=== PATIENT | female | born 1940 | race Caucasian/White ===

== ENCOUNTER 2016-08-19 11:32 | Emergency (ER) | payer MEDICARE, OTHER ==
[~2016-08-19 11:32] MED LIST: ASPI81TAEC PO; ATOR1TAB19 PO; BIMA01SOL OU; CALC1TAB30 PO; CLOB0.0548 EXT; CO Q1CAP PO; FIBECHW4 PO; FISH1000 PO; MAGN64TASA PO; META48.54 PO; METO25TAB PO; NITR4TASL SL; PERC5TAB6 PO; REST0.05 OU; RISE1TAB8 PO; SYNT25TA PO; VAGI10TA PV; VITMTA PO
[2016-08-19 12:13] LABS: BASO % 0.4 % (0.0-1.0); EOS # 0.2 K/mm3 (0.0-0.50); EOS % 1.9 % (0.0-3.0); LARGE UNSTAINED CELL # 0.2 K/mm3 (0.0-0.4); LARGE UNSTAINED CELL % 2.8 % (0.0-4.0); LYMPH # 2.7 K/mm3 (1.5-4.5); LYMPH % 30.9 % (24.0-44.0); MEAN CORPUSCULAR HEMOGLOBIN 30.6 pg (27.0-33.0); MEAN CORPUSCULAR HGB CONC 32.9 g/dl (32.0-36.5); MEAN CORPUSCULAR VOLUME 93.1 fl (80.0-96.0); MONO # 0.6 K/mm3 (0.0-0.8); NEUTROPHILS # 4.6 K/mm3 (1.8-7.7); PLATELET COUNT, AUTOMATED 175 k/mm3 (150-450); RED CELL DISTRIBUTION WIDTH 13.3 % (11.5-14.5)
[2016-08-19 12:36] LABS: ALBUMIN 3.7 GM/DL (3.2-5.2); ALBUMIN/GLOBULIN RATIO 1.12 (1.00-1.93); ALKALINE PHOSPHATASE 75 U/L (45-117); ALT/SGPT 32 U/L (12-78); ANION GAP 5 MEQ/L (8-16); AST/SGOT 26 U/L (15-37); BILIRUBIN,DIRECT < 0.1 MG/DL (0.0-0.2); BILIRUBIN,TOTAL 0.4 MG/DL (0.2-1.0); BLOOD UREA NITROGEN 14 MG/DL (7-18); CALCIUM LEVEL 9.3 MG/DL (8.8-10.2); CARBON DIOXIDE LEVEL 30 MEQ/L (21-32); CHLORIDE LEVEL 107 MEQ/L (98-107); CREATININE FOR GFR 0.68 MG/DL (0.55-1.02); GLOMERULAR FILTRATION RATE > 60.0 (>39); GLUCOSE, FASTING 94 MG/DL (83-110); POTASSIUM SERUM 4.4 MEQ/L (3.5-5.1); SODIUM LEVEL 142 MEQ/L (136-145)
--- NOTE | 2016-08-19 13:01 | REP ---
PORTABLE CHEST: AP portable view of the chest is performed and compared to prior study of 07/01/2016. There is no evidence of acute infiltrate or pulmonary edema. There is mild cardiomegaly. There is mild calcification of the thoracic aorta. Mediastinal silhouette is unchanged. IMPRESSION: No acute pulmonary disease. Signed by Yaakov Simon MD 08/19/2016 02:20 P
[2016-08-19] MEDS ORDERED: ASPIRIN 81 MG CHEW TABLET As Ordered ONE (13:08)
--- NOTE | 2016-08-19 15:32 | EDDOCDS ---
Nurse's Notes [facility] Name: Luz White Age: 75 yrs Sex: Female : 1940 Arrival Date: 08/19/2016 Time: 11:32 Bed 19 Private MD: Markie Chowdhury R. Diagnosis: Other chest pain;Angina pectoris Presentation: 08/19 11:41 Presenting complaint: Patient states: she has had chest tightness since 729. kcs 11:45 Aspirin was not taken prior to arrival. Adult Sepsis Screening: The patient does not kcs have new or worsening altered mentation. Patient's respiratory rate is less than 22. Systolic blood pressure is greater than 100. Patient has a qSOFA score of 0- Negative Sepsis Screen. Suicide/Homicide risk assessment- the patient denies having any suicidal and/or homicidal ideations and does not present with any other emotional, behavioral or mental health complaints. Status: Patient is not a herbicide service sales representative or dependent. Transition of care: patient was not received from another setting of care. 11:45 Acuity: EZEKIEL Level 3 kcs 11:45 Method Of Arrival: Wheelchair kcs 11:53 Red Flag criteria, patient assessed and taken directly to a bed. kcs Triage Assessment: 11:50 General: Appears comfortable, slender, well developed, well nourished, well groomed, kcs Behavior is cooperative, flat. Pain: Location: mid-sternal chest Pain currently is 5 out of 10 on a pain scale. The patient is triaged at the bedside. See Assessment in Nurses Notes section of ED record. Neurological: Level of Consciousness is awake, alert. Cardiovascular: Rhythm is sinus rhythm No ectopy. Respiratory: Airway is patent Respiratory effort is even, unlabored, Respiratory pattern is regular, symmetrical. Derm: Skin is intact, is healthy with good turgor, Skin is dry, Skin is pink, warm & dry. normal. Historical: - Allergies: No known drug Allergies; - Home Meds: 1. aspirin 81 mg Oral chew 1 tab once daily 2. risedronate 35 mg oral tab 1 tab once wkly 3. levothyroxine 25 mcg Oral tab 1 tab once daily 4. metoprolol tartrate 25 mg Oral tab 1 tab 2 times per day 5. Slow-Mag 71.5 mg Oral TbEC daily 6. CoQ-10 100 mg oral cap daily 7. atorvastatin 10 mg oral tab 1 tab every other night 8. Centrum Silver 0.4-300-250 mg-mcg-mcg oral tab daily 9. Calcium + Vitamin D Oral twice a day 10. vagifem 10 mcg three times a week 11. Metamucil Smooth Texture Oral twice a day 12. Lumigan 0.01 % ophthalmic drop 1 drop in each eye daily 13. clobetasol .05% to perineal area as needed 14. Fish Oil 1,000 mg Oral cap daily 15. nitroglycerin 0.4 mg SL subl 1 tab every 5 minutes as needed 16. Restasis 0.05 % ophthalmic dpet 1 drop 2 times per day - PMHx: Hypercholesterolemia; Hypertension; - PSHx: D & C; Tonsillectomy; fracture right arm; Cataract Surgery- Bilateral; - Social history: Smoking status: Patient states was never smoker of tobacco. No barriers to communication noted, The patient speaks fluent Burundian. - Family history: Not pertinent. - : The pt / caregiver states he / she is not on anticoagulants. Home medication list is obtained from the patient, [employer] import data. - Exposure Risk Screening:: None identified. Screenin:37 Screening information is obtained from the patient. Fall risk: No risks identified. kr3 Assistance ADL's: requires no assistance with activities of daily living. Abuse/DV Screen: The patient / caregiver reports he/she is: not in a situation that causes fear, pain or injury. Nutritional screening: No deficits noted. Advance Directives: Currently, there is a health care proxy, . There is an active Power of Compound Machine Operator, . home support is adequate. Assessment: 12:36 General: Appears in no apparent distress, comfortable, Behavior is cooperative. Pain: kr3 Denies pain. Neurological: Level of Consciousness is awake, alert. Cardiovascular: Rhythm is sinus rhythm No ectopy. Respiratory: Respiratory effort is even, unlabored, Breath sounds are clear bilaterally. Derm: Skin is pink, warm & dry. 13:28 Reassessment: Patient appears in no apparent distress at this time. PAIN FREE after 2 kr3 Nitro. 15:29 General: First contact with pt. Pt resting comfortably in bed. No apparent distress. ld5 Denies pain. Respirations easy and unlabored. Ate lunch and tolerated well. Will continue to monitor. Vital Signs: 11:34 BP 174 / 62; Pulse 63; Resp 18; Temp 97.0(O); Pulse Ox 97% on R/A; Weight 51.71 kg (R); ct3 Height 62 in. (157.48 cm) (R); Pain 6/10; 13:13 BP 114 / 56 (auto/); kr3 13:14 Pulse 58 MON; Pulse Ox 97% ; Pain 3/10; kr3 13:20 BP 115 / 58; Pulse 57; Pain 2/10; kr3 13:28 BP 125 / 57; Pulse 57; Pain 0/10; kr3 13:43 BP 120 / 59 (auto/); kr3 13:43 Pulse 62 MON; Pulse Ox 95% ; kr3 13:58 BP 128 / 60 (auto/); kr3 13:58 Pulse 58 MON; Pulse Ox 95% ; kr3 14:13 BP 115 / 58 (auto/); kr3 14:14 Pulse 56 MON; Pulse Ox 96% ; kr3 14:28 BP 115 / 58 (auto/); kr3 14:28 Pulse 54 MON; Pulse Ox 97% ; kr3 14:43 BP 111 / 55 (auto/); kr3 14:44 Pulse 56 MON; Pulse Ox 97% ; kr3 15:26 BP 130 / 60 (auto/); Pulse 58; Resp 16; Temp 97(O); Pulse Ox 97% on R/A; Pain 0/10; ld5 11:34 Body Mass Index 20.85 (51.71 kg, 157.48 cm) ct3 Vitals: 11:34 Log In Time: August 19, 2016 at 11:31. RN notified that patient meets Red Flag ct3 criteria. ED Course: 11:34 Patient visited by Sylvie Contreras PCA. ct3 11:34 Markie Chowdhury is Private Physician. ct3 11:34 Patient moved to Waiting ct3 11:39 Tiffany Johnson,RN is Primary Nurse. kcs 11:39 Patient moved to 21 kcs 11:41 Patient moved to 19 kcs 11:45 Triage Initiated kcs 11:54 EKG done. (by ED staff). lr2 11:57 D-Dimer Quant Sent. kr3 11:58 Liver Profile Sent. kr3 11:58 Troponin Sent. kr3 11:58 CIP Sent. kr3 11:58 MED Profile Sent. kr3 11:58 CBC with Diff Sent. kr3 11:58 Inserted saline lock: 20 gauge in left antecubital area and blood collected. The kr3 patient tolerated the procedure well. 12:35 Tanisha Foley FNP [facility]. le 12:36 Patient visited by Tiffany Johnson RN. kr3 12:36 Patient visited by Tanisha Foley FNP. le 12:36 Patient visited by Tanisha Foley FNP. le 12:38 The patient / caregiver is instructed regarding the plan of care and ED course. kr3 Accompanied by Family Member, Patient has correct armband on for positive identification. Placed in gown. Bed in low position. Call light in reach. Side rails up X2. personnel monitor on. Pulse ox on. NIBP on. 13:17 Chest, 1 View Returned. EDMS 13:28 Patient visited by Tiffany Johnson RN. kr3 13:30 Diet tray given. kr3 13:36 EKG done. (by ED staff). lr2 14:05 Patient visited by Tiffany Johnson RN. kr3 14:56 Chest, 1 View Returned. EDMS 15:02 Taran Britton MD is Referral Physician. le 15:26 Discontinued lock intact, bleeding controlled, pressure dressing applied, No ld5 redness/swelling at site. No procedures done that require assistance. 15:31 Patient visited by Alem Painter RN. ld5 Administered Medications: 13:10 Drug: Aspirin 324 mg [aspirin 81 mg chewable tablet (4 tabs)] Route: PO; kr3 13:10 Drug: Nitrostat 0.4 mg [Nitrostat 0.4 mg sublingual tablet (1 tabs)] Route: Sublingual; kr3 13:20 Drug: Nitrostat 0.4 mg [Nitrostat 0.4 mg sublingual tablet (1 tabs)] Route: Sublingual; kr3 13:20 Follow up: BP 115 / 58; Pulse 57 bpm; Pain 2/10 Adult kr3 13:28 Follow up: BP 125 / 57; Pulse 57 bpm; Pain 0/10 Adult; Response: Pain is resolved kr3 Order Results: Lab Order: CBC with Diff; SPEC'M 08/19/16 11:56 Test: WHITE BLOOD COUNT; Value: 8.0; Range: 4.0-10.0; Units: K/mm3; Status: F Test: RED BLOOD COUNT; Value: 4.60; Range: 4.00-5.40; Units: M/mm3; Status: F Test: HEMOGLOBIN; Value: 14.1; Range: 12.0-16.0; Units: g/dl; Status: F Test: HEMATOCRIT; Value: 42.8; Range: 36.0-47.0; Units: %; Status: F Test: MEAN CORPUSCULAR VOLUME; Value: 93.1; Range: 80.0-96.0; Units: fl; Status: F Test: MEAN CORPUSCULAR HEMOGLOBIN; Value: 30.6; Range: 27.0-33.0; Units: pg; Status: F Test: MEAN CORPUSCULAR HGB CONC; Value: 32.9; Range: 32.0-36.5; Units: g/dl; Status: F Test: RED CELL DISTRIBUTION WIDTH; Value: 13.3; Range: 11.5-14.5; Units: %; Status: F Test: PLATELET COUNT, AUTOMATED; Value: 175; Range: 150-450; Units: k/mm3; Status: F Test: NEUTROPHILS %; Value: 57.0; Range: 36.0-66.0; Units: %; Status: F Test: LYMPH %; Value: 30.9; Range: 24.0-44.0; Units: %; Status: F Test: MONO %; Value: 7.0; Range: 0.0-5.0; Abnormal: Above high normal; Units: %; Status: F Test: EOS %; Value: 1.9; Range: 0.0-3.0; Units: %; Status: F Test: BASO %; Value: 0.4; Range: 0.0-1.0; Units: %; Status: F Test: LARGE UNSTAINED CELL %; Value: 2.8; Range: 0.0-4.0; Units: %; Status: F Test: NEUTROPHILS #; Value: 4.6; Range: 1.8-7.7; Units: K/mm3; Status: F Test: LYMPH #; Value: 2.7; Range: 1.5-4.5; Units: K/mm3; Status: F Test: MONO #; Value: 0.6; Range: 0.0-0.8; Units: K/mm3; Status: F Test: EOS #; Value: 0.2; Range: 0.0-0.50; Units: K/mm3; Status: F Test: BASO #; Value: 0.0; Range: 0.0-0.2; Units: K/mm3; Status: F Test: LARGE UNSTAINED CELL #; Value: 0.2; Range: 0.0-0.4; Units: K/mm3; Status: F Lab Order: MED Profile; SPEC'M 08/19/16 11:56 Test: GLUCOSE, FASTING; Value: 94; Range: 83-110; Units: MG/DL; Status: F Test: BLOOD UREA NITROGEN; Value: 14; Range: 7-18; Units: MG/DL; Status: F Test: CREATININE FOR GFR; Value: 0.68; Range: 0.55-1.02; Units: MG/DL; Status: F Test: GLOMERULAR FILTRATION RATE; Value: > 60.0; Range: >39; Status: F Test: SODIUM LEVEL; Value: 142; Range: 136-145; Units: MEQ/L; Status: F Test: POTASSIUM SERUM; Value: 4.4; Range: 3.5-5.1; Units: MEQ/L; Status: F Test: CHLORIDE LEVEL; Value: 107; Range: 98-107; Units: MEQ/L; Status: F Test: CARBON DIOXIDE LEVEL; Value: 30; Range: 21-32; Units: MEQ/L; Status: F Test: ANION GAP; Value: 5; Range: 8-16; Abnormal: Below low normal; Units: MEQ/L; Status: F Test: CALCIUM LEVEL; Value: 9.3; Range: 8.8-10.2; Units: MG/DL; Status: F Test Note: ; Units are mL/min/1.73 m2 Chronic Kidney Disease Staging per NKF: Stage I & II GFR >=60 Normal to Mildly Decreased Stage III GFR 30-59 Moderately Decreased Stage IV GFR 15-29 Severely Decreased Stage V GFR <15 Very Little GFR Left ESRD GFR <15 on 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 Lab Order: CIP; SPEC'M 08/19/16 11:56 Test: CPK CREATINE PHOSPHOKINASE; Value: 48; Range: 26-192; Units: U/L; Status: F Test: CK-MB VALUE MASS; Value: 2.1; Range: 0.0-3.6; Units: NG/ML; Status: F Test: MB/CK RELATIVE INDEX; Value: 4.37; Range: < OR =4; Abnormal: Above high normal; Status: F Test Note: ; DIAGNOSIS CRITERIA MMB ng/ml Relative Index (RI) NON-AMI < or = 5 N/A SIMON ZONE > 5 < or = 4 AMI > 5 > 4 Lab Order: Troponin; SPEC'M 08/19/16 11:56 Test: TROPONIN I; Value: < 0.02; Range: < 0.10; Units: NG/ML; Status: F Test Note: ; Troponin I Reference Interval for [employer] LOCI: 99th Percentile= 0.00-0.045 ng/ml Risk Stratification: <= 0.10 ng/ml Decreased Risk for Adverse Clinical Events. 0.10-1.50 ng/ml Increased Risk for Adverse Clinical Events. Evaluation of additional criterion and/or repeat testing in 2-6 hours is suggested to rule out myocardial damage. >= 1.50 ng/ml Indicative of Myocardial Injury. Lab Order: Liver Profile; SPEC'M 08/19/16 11:56 Test: AST/SGOT; Value: 26; Range: 15-37; Units: U/L; Status: F Test: ALT/SGPT; Value: 32; Range: 12-78; Units: U/L; Status: F Test: ALKALINE PHOSPHATASE; Value: 75; Range: 45-117; Units: U/L; Status: F Test: BILIRUBIN,TOTAL; Value: 0.4; Range: 0.2-1.0; Units: MG/DL; Status: F Test: BILIRUBIN,DIRECT; Value: < 0.1; Range: 0.0-0.2; Units: MG/DL; Status: F Test: TOTAL PROTEIN; Value: 7.0; Range: 6.4-8.2; Units: GM/DL; Status: F Test: ALBUMIN; Value: 3.7; Range: 3.2-5.2; Units: GM/DL; Status: F Test: ALBUMIN/GLOBULIN RATIO; Value: 1.12; Range: 1.00-1.93; Status: F Lab Order: D-Dimer Quant; SPEC'M 08/19/16 11:56 Test: D-DIMER QUANT; Value: 290.0; Range: <500; Units: ng/ml; Status: F Lab Order: CARDIAC MARKER PANEL; SPEC'M 08/19/16 13:54 Test: CPK CREATINE PHOSPHOKINASE; Value: 43; Range: 26-192; Units: U/L; Status: F Test: CK-MB VALUE MASS; Value: 1.3; Range: 0.0-3.6; Units: NG/ML; Status: F Test: MB/CK RELATIVE INDEX; Value: 3.02; Range: < OR =4; Status: F Test: TROPONIN I; Value: < 0.02; Range: < 0.10; Units: NG/ML; Status: F Test Note: ; DIAGNOSIS CRITERIA MMB ng/ml Relative Index (RI) NON-AMI < or = 5 N/A SIMON ZONE > 5 < or = 4 AMI > 5 > 4 Radiology Order: Chest, 1 View Test: Chest, 1 View REASON FOR EXAMINATION: Chest Pain; PORTABLE CHEST:; ; AP portable view of the chest is performed and compared to prior study of; 07/01/2016.; ; There is no evidence of acute infiltrate or pulmonary edema. There is mild; cardiomegaly. There is mild calcification of the thoracic aorta. Mediastinal; silhouette is unchanged.; ; IMPRESSION:; ; No acute pulmonary disease.; ; ; Signed by; Yaakov Simon MD 08/19/2016 02:20 P; Outcome: 15:02 Discharge ordered by Provider. le 15:26 Discharge Assessment: Patient awake, alert and oriented x 3. No cognitive and/or ld5 functional deficits noted. Patient verbalized understanding of disposition instructions. patient administered narcotics - no. The following High Risk Discharge criteria are identified: None. Discharged to home ambulatory, with significant other. Condition: stable. Discharge instructions given to patient, significant other, Instructed on discharge instructions, follow up and referral plans. medication usage, Demonstrated understanding of instructions, Pt was receptive of discharge instructions/ teaching. No special radiology studies were completed. Property :Personal belongings accompany Pt. 15:31 Patient left the ED. ld5 Signatures: Dispatcher [employer] EDStormy Martinez, RN RN kcs Tiffany Johnson,RN RN kr3 Tanisha Foley, Alem Villeda,RN RN ld5 Sylvie Contreras, MARIA DE JESUS RUST PROOFER ct3 Alem Calderon lr2 MTDD
--- NOTE | 2016-08-19 15:32 | EDDOCDS ---
Physician Documentation [facility] Name: Luz White Age: 75 yrs Sex: Female : 1940 Arrival Date: 08/19/2016 Time: 11:32 Bed 19 Private MD: Markie Chowdhury R. Disposition: 08/19 15:04 Critical Care: Critical care not applicable. le Disposition: 08/19/16 15:02 Discharged to Home/Self Care. Impression: Other chest pain, Angina pectoris. - Condition is Stable. - Discharge Instructions: Angina Pectoris. - Medication Reconciliation, Local Pharmacy Hours form. - Follow up: Taran Britton MD; When: Call to arrange an appointment; Reason: Recheck today's complaints, Continuance of care. - Problem is an acute exacerbation. - Symptoms are resolved. - Notes: Use your nitroglycerine if chest pain recurs. You can take it every 5 minutes. If you need to take the 3rd dose, call 911 and come to the hospital to be checked Call Dr Grider office to schedule a follow-up appointment Historical: - Allergies: No known drug Allergies; - Home Meds: 1. aspirin 81 mg Oral chew 1 tab once daily 2. risedronate 35 mg oral tab 1 tab once wkly 3. levothyroxine 25 mcg Oral tab 1 tab once daily 4. metoprolol tartrate 25 mg Oral tab 1 tab 2 times per day 5. Slow-Mag 71.5 mg Oral TbEC daily 6. CoQ-10 100 mg oral cap daily 7. atorvastatin 10 mg oral tab 1 tab every other night 8. Centrum Silver 0.4-300-250 mg-mcg-mcg oral tab daily 9. Calcium + Vitamin D Oral twice a day 10. vagifem 10 mcg three times a week 11. Metamucil Smooth Texture Oral twice a day 12. Lumigan 0.01 % ophthalmic drop 1 drop in each eye daily 13. clobetasol .05% to perineal area as needed 14. Fish Oil 1,000 mg Oral cap daily 15. nitroglycerin 0.4 mg SL subl 1 tab every 5 minutes as needed 16. Restasis 0.05 % ophthalmic dpet 1 drop 2 times per day - PMHx: Hypercholesterolemia; Hypertension; - PSHx: D & C; Tonsillectomy; fracture right arm; Cataract Surgery- Bilateral; - Social history: Smoking status: Patient states was never smoker of tobacco. No barriers to communication noted, The patient speaks fluent Malay. - Family history: Not pertinent. - : The pt / caregiver states he / she is not on anticoagulants. Home medication list is obtained from the patient, [employer] import data. - Exposure Risk Screening:: None identified. Vital Signs: 11:34 BP 174 / 62; Pulse 63; Resp 18; Temp 97.0(O); Pulse Ox 97% on R/A; Weight 51.71 kg / ct3 114 lbs (R); Height 62 in. (157.48 cm) (R); Pain 6/10; 13:13 BP 114 / 56 (auto/); kr3 13:14 Pulse 58 MON; Pulse Ox 97% ; Pain 3/10; kr3 13:20 BP 115 / 58; Pulse 57; Pain 2/10; kr3 13:28 BP 125 / 57; Pulse 57; Pain 0/10; kr3 13:43 BP 120 / 59 (auto/); kr3 13:43 Pulse 62 MON; Pulse Ox 95% ; kr3 13:58 BP 128 / 60 (auto/); kr3 13:58 Pulse 58 MON; Pulse Ox 95% ; kr3 14:13 BP 115 / 58 (auto/); kr3 14:14 Pulse 56 MON; Pulse Ox 96% ; kr3 14:28 BP 115 / 58 (auto/); kr3 14:28 Pulse 54 MON; Pulse Ox 97% ; kr3 14:43 BP 111 / 55 (auto/); kr3 14:44 Pulse 56 MON; Pulse Ox 97% ; kr3 15:26 BP 130 / 60 (auto/); Pulse 58; Resp 16; Temp 97(O); Pulse Ox 97% on R/A; Pain 0/10; ld5 11:34 Body Mass Index 20.85 (51.71 kg, 157.48 cm) ct3 MDM: 11:43 ECG WITH READING ER PHYS+CARDIAG ordered. EDMS 11:53 IV Saline Lock ordered. ml 11:53 Metal Solderer/Pulse Ox/q 15 min VS ordered. ml 11:53 Rhythm Strip to chart ordered. ml 11:54 CBC with Diff Ordered. EDMS 11:54 MED Profile Ordered. EDMS 11:54 CIP Ordered. EDMS 11:54 Troponin Ordered. EDMS 11:54 Liver Profile Ordered. EDMS 11:54 D-Dimer Quant Ordered. EDMS 11:55 Chest, 1 View Ordered. EDMS 12:57 CBC with Diff Reviewed. le 12:57 MED Profile Reviewed. le 12:57 CIP Reviewed. le 12:57 Troponin Reviewed. le 12:57 Liver Profile Reviewed. le 12:57 D-Dimer Quant Reviewed. le 12:58 Aspirin Chewable Tablet 324 mg PO once ordered. le 12:58 Nitrostat 0.4 mg Sublingual every 5 minutes; hold if SBP<90mmHg.Document Pain Score le Response to Each Dose x3 ordered. 12:59 2 GRAM SODIUM+DIET ordered. EDMS 13:04 Repeat EKG (put time details section) ordered. le 13:04 Redraw CIP &Troponin (put time in details section) ordered. le 13:08 Redraw CIP &Troponin (put time in details section) complete. rs6 13:08 Repeat EKG (put time details section) complete. rs6 13:12 ECG WITH READING ER PHYS ordered. EDMS 13:13 CARDIAC MARKER PANEL Ordered. EDMS 14:37 CARDIAC MARKER PANEL Reviewed. le 14:37 Chest, 1 View Reviewed. le Administered Medications: 13:10 Drug: Aspirin 324 mg [aspirin 81 mg chewable tablet (4 tabs)] Route: PO; kr3 13:10 Drug: Nitrostat 0.4 mg [Nitrostat 0.4 mg sublingual tablet (1 tabs)] Route: Sublingual; kr3 13:20 Drug: Nitrostat 0.4 mg [Nitrostat 0.4 mg sublingual tablet (1 tabs)] Route: Sublingual; kr3 13:20 Follow up: BP 115 / 58; Pulse 57 bpm; Pain 2/10 Adult kr3 13:28 Follow up: BP 125 / 57; Pulse 57 bpm; Pain 0/10 Adult; Response: Pain is resolved kr3 Signatures: Dispatcher [employer] EDMS Amanda Plascencia MD MD ml Sleeman, Kacey, RN RN Tanisha Verdin, LAYER OUT LAYER OUT Alem MyersRN RN ld5 Grace Pabon, PROBATION AGENT PROBATION AGENT rs6 Tiffany Johnson RN kr3 MTDD
--- NOTE | 2016-08-20 07:56 | ECGEPIP ---
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
--- NOTE | 2016-08-20 08:01 | ECGEPIP ---
Stationary ECG Study 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
--- NOTE | 2016-08-21 16:32 | EDDOCDS ---
Nurse's Notes [facility] Name: Anuja White Age: 75 yrs Sex: Female : 1940 Arrival Date: 08/19/2016 Time: 11:32 Bed 19 Private MD: Markie Chowdhury R. Diagnosis: Other chest pain;Angina pectoris Presentation: 08/19 11:41 Presenting complaint: Patient states: she has had chest tightness since 729. kcs 11:45 Aspirin was not taken prior to arrival. Adult Sepsis Screening: The patient does not kcs have new or worsening altered mentation. Patient's respiratory rate is less than 22. Systolic blood pressure is greater than 100. Patient has a qSOFA score of 0- Negative Sepsis Screen. Suicide/Homicide risk assessment- the patient denies having any suicidal and/or homicidal ideations and does not present with any other emotional, behavioral or mental health complaints. Status: Patient is not a government service executive or dependent. Transition of care: patient was not received from another setting of care. 11:45 Acuity: EZEKIEL Level 3 kcs 11:45 Method Of Arrival: Wheelchair kcs 11:53 Red Flag criteria, patient assessed and taken directly to a bed. kcs Triage Assessment: 11:50 General: Appears comfortable, slender, well developed, well nourished, well groomed, kcs Behavior is cooperative, flat. Pain: Location: mid-sternal chest Pain currently is 5 out of 10 on a pain scale. The patient is triaged at the bedside. See Assessment in Nurses Notes section of ED record. Neurological: Level of Consciousness is awake, alert. Cardiovascular: Rhythm is sinus rhythm No ectopy. Respiratory: Airway is patent Respiratory effort is even, unlabored, Respiratory pattern is regular, symmetrical. Derm: Skin is intact, is healthy with good turgor, Skin is dry, Skin is pink, warm & dry. normal. Historical: - Allergies: No known drug Allergies; - Home Meds: 1. aspirin 81 mg Oral chew 1 tab once daily 2. risedronate 35 mg oral tab 1 tab once wkly 3. levothyroxine 25 mcg Oral tab 1 tab once daily 4. metoprolol tartrate 25 mg Oral tab 1 tab 2 times per day 5. Slow-Mag 71.5 mg Oral TbEC daily 6. CoQ-10 100 mg oral cap daily 7. atorvastatin 10 mg oral tab 1 tab every other night 8. Centrum Silver 0.4-300-250 mg-mcg-mcg oral tab daily 9. Calcium + Vitamin D Oral twice a day 10. vagifem 10 mcg three times a week 11. Metamucil Smooth Texture Oral twice a day 12. Lumigan 0.01 % ophthalmic drop 1 drop in each eye daily 13. clobetasol .05% to perineal area as needed 14. Fish Oil 1,000 mg Oral cap daily 15. nitroglycerin 0.4 mg SL subl 1 tab every 5 minutes as needed 16. Restasis 0.05 % ophthalmic dpet 1 drop 2 times per day - PMHx: Hypercholesterolemia; Hypertension; - PSHx: D & C; Tonsillectomy; fracture right arm; Cataract Surgery- Bilateral; - Social history: Smoking status: Patient states was never smoker of tobacco. No barriers to communication noted, The patient speaks fluent Colombian. - Family history: Not pertinent. - : The pt / caregiver states he / she is not on anticoagulants. Home medication list is obtained from the patient, [employer] import data. - Exposure Risk Screening:: None identified. Screenin:37 Screening information is obtained from the patient. Fall risk: No risks identified. kr3 Assistance ADL's: requires no assistance with activities of daily living. Abuse/DV Screen: The patient / caregiver reports he/she is: not in a situation that causes fear, pain or injury. Nutritional screening: No deficits noted. Advance Directives: Currently, there is a health care proxy, . There is an active Power of Engineering Aid, . home support is adequate. Assessment: 12:36 General: Appears in no apparent distress, comfortable, Behavior is cooperative. Pain: kr3 Denies pain. Neurological: Level of Consciousness is awake, alert. Cardiovascular: Rhythm is sinus rhythm No ectopy. Respiratory: Respiratory effort is even, unlabored, Breath sounds are clear bilaterally. Derm: Skin is pink, warm & dry. 13:28 Reassessment: Patient appears in no apparent distress at this time. PAIN FREE after 2 kr3 Nitro. 15:29 General: First contact with pt. Pt resting comfortably in bed. No apparent distress. ld5 Denies pain. Respirations easy and unlabored. Ate lunch and tolerated well. Will continue to monitor. Vital Signs: 11:34 BP 174 / 62; Pulse 63; Resp 18; Temp 97.0(O); Pulse Ox 97% on R/A; Weight 51.71 kg (R); ct3 Height 62 in. (157.48 cm) (R); Pain 6/10; 13:13 BP 114 / 56 (auto/); kr3 13:14 Pulse 58 MON; Pulse Ox 97% ; Pain 3/10; kr3 13:20 BP 115 / 58; Pulse 57; Pain 2/10; kr3 13:28 BP 125 / 57; Pulse 57; Pain 0/10; kr3 13:43 BP 120 / 59 (auto/); kr3 13:43 Pulse 62 MON; Pulse Ox 95% ; kr3 13:58 BP 128 / 60 (auto/); kr3 13:58 Pulse 58 MON; Pulse Ox 95% ; kr3 14:13 BP 115 / 58 (auto/); kr3 14:14 Pulse 56 MON; Pulse Ox 96% ; kr3 14:28 BP 115 / 58 (auto/); kr3 14:28 Pulse 54 MON; Pulse Ox 97% ; kr3 14:43 BP 111 / 55 (auto/); kr3 14:44 Pulse 56 MON; Pulse Ox 97% ; kr3 15:26 BP 130 / 60 (auto/); Pulse 58; Resp 16; Temp 97(O); Pulse Ox 97% on R/A; Pain 0/10; ld5 11:34 Body Mass Index 20.85 (51.71 kg, 157.48 cm) ct3 Vitals: 11:34 Log In Time: August 19, 2016 at 11:31. RN notified that patient meets Red Flag ct3 criteria. ED Course: 11:34 Patient visited by Sylvie Contreras PCA. ct3 11:34 Markie Chowdhury is Private Physician. ct3 11:34 Patient moved to Waiting ct3 11:39 Tiffany Johnson,RN is Primary Nurse. kcs 11:39 Patient moved to 21 kcs 11:41 Patient moved to 19 kcs 11:45 Triage Initiated kcs 11:54 EKG done. (by ED staff). lr2 11:57 D-Dimer Quant Sent. kr3 11:58 Liver Profile Sent. kr3 11:58 Troponin Sent. kr3 11:58 CIP Sent. kr3 11:58 MED Profile Sent. kr3 11:58 CBC with Diff Sent. kr3 11:58 Inserted saline lock: 20 gauge in left antecubital area and blood collected. The kr3 patient tolerated the procedure well. 12:35 [facility] le 12:36 Patient visited by Tiffany Johnson RN. kr3 12:36 Patient visited by Tanisha Foley FNP. le 12:36 Patient visited by Tanisha Foley FNP. le 12:38 The patient / caregiver is instructed regarding the plan of care and ED course. kr3 Accompanied by Family Member, Patient has correct armband on for positive identification. Placed in gown. Bed in low position. Call light in reach. Side rails up X2. aquatic centre manager on. Pulse ox on. NIBP on. 13:17 Chest, 1 View Returned. EDMS 13:28 Patient visited by Tiffany Johnson RN. kr3 13:30 Diet tray given. kr3 13:36 EKG done. (by ED staff). lr2 14:05 Patient visited by Tiffany Johnson RN. kr3 14:56 Chest, 1 View Returned. EDMS 15:02 Taran Britton MD is Referral Physician. le 15:26 Discontinued lock intact, bleeding controlled, pressure dressing applied, No ld5 redness/swelling at site. No procedures done that require assistance. 15:31 Patient visited by Alem Painter RN. ld5 15:58 [facility] Payment Agreement was scanned into [employer] and attached to record. gjb 08/20 08:04 EKG-ADULT Returned. EDMS 08:04 ECG WITH READING ER PHYS Returned. EDMS 09:44 T-Sheet-- Draft Copy was scanned into [employer] and attached to record. gb 09:47 ECG/EKG was scanned into [employer] and attached to record. gb 09:48 Trend VS was scanned into [employer] and attached to record. gb 12:54 ECG/EKG was scanned into [employer] and attached to record. gb Administered Medications: 08/19 13:10 Drug: Aspirin 324 mg [aspirin 81 mg chewable tablet (4 tabs)] Route: PO; kr3 13:10 Drug: Nitrostat 0.4 mg [Nitrostat 0.4 mg sublingual tablet (1 tabs)] Route: Sublingual; kr3 13:20 Drug: Nitrostat 0.4 mg [Nitrostat 0.4 mg sublingual tablet (1 tabs)] Route: Sublingual; kr3 13:20 Follow up: BP 115 / 58; Pulse 57 bpm; Pain 2/10 Adult kr3 13:28 Follow up: BP 125 / 57; Pulse 57 bpm; Pain 0/10 Adult; Response: Pain is resolved kr3 Attachments: 09:48 Trend VS gb Order Results: Lab Order: CBC with Diff; SPEC'M 08/19/16 11:56 Test: WHITE BLOOD COUNT; Value: 8.0; Range: 4.0-10.0; Units: K/mm3; Status: F Test: RED BLOOD COUNT; Value: 4.60; Range: 4.00-5.40; Units: M/mm3; Status: F Test: HEMOGLOBIN; Value: 14.1; Range: 12.0-16.0; Units: g/dl; Status: F Test: HEMATOCRIT; Value: 42.8; Range: 36.0-47.0; Units: %; Status: F Test: MEAN CORPUSCULAR VOLUME; Value: 93.1; Range: 80.0-96.0; Units: fl; Status: F Test: MEAN CORPUSCULAR HEMOGLOBIN; Value: 30.6; Range: 27.0-33.0; Units: pg; Status: F Test: MEAN CORPUSCULAR HGB CONC; Value: 32.9; Range: 32.0-36.5; Units: g/dl; Status: F Test: RED CELL DISTRIBUTION WIDTH; Value: 13.3; Range: 11.5-14.5; Units: %; Status: F Test: PLATELET COUNT, AUTOMATED; Value: 175; Range: 150-450; Units: k/mm3; Status: F Test: NEUTROPHILS %; Value: 57.0; Range: 36.0-66.0; Units: %; Status: F Test: LYMPH %; Value: 30.9; Range: 24.0-44.0; Units: %; Status: F Test: MONO %; Value: 7.0; Range: 0.0-5.0; Abnormal: Above high normal; Units: %; Status: F Test: EOS %; Value: 1.9; Range: 0.0-3.0; Units: %; Status: F Test: BASO %; Value: 0.4; Range: 0.0-1.0; Units: %; Status: F Test: LARGE UNSTAINED CELL %; Value: 2.8; Range: 0.0-4.0; Units: %; Status: F Test: NEUTROPHILS #; Value: 4.6; Range: 1.8-7.7; Units: K/mm3; Status: F Test: LYMPH #; Value: 2.7; Range: 1.5-4.5; Units: K/mm3; Status: F Test: MONO #; Value: 0.6; Range: 0.0-0.8; Units: K/mm3; Status: F Test: EOS #; Value: 0.2; Range: 0.0-0.50; Units: K/mm3; Status: F Test: BASO #; Value: 0.0; Range: 0.0-0.2; Units: K/mm3; Status: F Test: LARGE UNSTAINED CELL #; Value: 0.2; Range: 0.0-0.4; Units: K/mm3; Status: F Lab Order: MED Profile; SPEC'M 08/19/16 11:56 Test: GLUCOSE, FASTING; Value: 94; Range: 83-110; Units: MG/DL; Status: F Test: BLOOD UREA NITROGEN; Value: 14; Range: 7-18; Units: MG/DL; Status: F Test: CREATININE FOR GFR; Value: 0.68; Range: 0.55-1.02; Units: MG/DL; Status: F Test: GLOMERULAR FILTRATION RATE; Value: > 60.0; Range: >39; Status: F Test: SODIUM LEVEL; Value: 142; Range: 136-145; Units: MEQ/L; Status: F Test: POTASSIUM SERUM; Value: 4.4; Range: 3.5-5.1; Units: MEQ/L; Status: F Test: CHLORIDE LEVEL; Value: 107; Range: 98-107; Units: MEQ/L; Status: F Test: CARBON DIOXIDE LEVEL; Value: 30; Range: 21-32; Units: MEQ/L; Status: F Test: ANION GAP; Value: 5; Range: 8-16; Abnormal: Below low normal; Units: MEQ/L; Status: F Test: CALCIUM LEVEL; Value: 9.3; Range: 8.8-10.2; Units: MG/DL; Status: F Test Note: ; Units are mL/min/1.73 m2 Chronic Kidney Disease Staging per NKF: Stage I & II GFR >=60 Normal to Mildly Decreased Stage III GFR 30-59 Moderately Decreased Stage IV GFR 15-29 Severely Decreased Stage V GFR <15 Very Little GFR Left ESRD GFR <[address] CUTTER Lab Order: CIP; SPEC08/19/16 11:56 Test: CPK CREATINE PHOSPHOKINASE; Value: 48; Range: 26-192; Units: U/L; Status: F Test: CK-MB VALUE MASS; Value: 2.1; Range: 0.0-3.6; Units: NG/ML; Status: F Test: MB/CK RELATIVE INDEX; Value: 4.37; Range: < OR =4; Abnormal: Above high normal; Status: F Test Note: ; DIAGNOSIS CRITERIA MMB ng/ml Relative Index (RI) NON-AMI < or = 5 N/A SIMON ZONE > 5 < or = 4 AMI > 5 > 4 Lab Order: Troponin; 08/19/16 11:56 Test: TROPONIN I; Value: < 0.02; Range: < 0.10; Units: NG/ML; Status: F Test Note: ; Troponin I Reference Interval for [employer] [place] LOCI: 99th Percentile= 0.00-0.045 ng/ml Risk Stratification: <= 0.10 ng/ml Decreased Risk for Adverse Clinical Events. 0.10-1.50 ng/ml Increased Risk for Adverse Clinical Events. Evaluation of additional criterion and/or repeat testing in 2-6 hours is suggested to rule out myocardial damage. >= 1.50 ng/ml Indicative of Myocardial Injury. Lab Order: Liver Profile; SPEC08/19/16 11:56 Test: AST/SGOT; Value: 26; Range: 15-37; Units: U/L; Status: F Test: ALT/SGPT; Value: 32; Range: 12-78; Units: U/L; Status: F Test: ALKALINE PHOSPHATASE; Value: 75; Range: 45-117; Units: U/L; Status: F Test: BILIRUBIN,TOTAL; Value: 0.4; Range: 0.2-1.0; Units: MG/DL; Status: F Test: BILIRUBIN,DIRECT; Value: < 0.1; Range: 0.0-0.2; Units: MG/DL; Status: F Test: TOTAL PROTEIN; Value: 7.0; Range: 6.4-8.2; Units: GM/DL; Status: F Test: ALBUMIN; Value: 3.7; Range: 3.2-5.2; Units: GM/DL; Status: F Test: ALBUMIN/GLOBULIN RATIO; Value: 1.12; Range: 1.00-1.93; Status: F Lab Order: D-Dimer Quant; SPEC'M 08/19/16 11:56 Test: D-DIMER QUANT; Value: 290.0; Range: <500; Units: ng/ml; Status: F Lab Order: CARDIAC MARKER PANEL; SPEC' 08/19/16 13:54 Test: CPK CREATINE PHOSPHOKINASE; Value: 43; Range: 26-192; Units: U/L; Status: F Test: CK-MB VALUE MASS; Value: 1.3; Range: 0.0-3.6; Units: NG/ML; Status: F Test: MB/CK RELATIVE INDEX; Value: 3.02; Range: < OR =4; Status: F Test: TROPONIN I; Value: < 0.02; Range: < 0.10; Units: NG/ML; Status: F Test Note: ; DIAGNOSIS CRITERIA MMB ng/ml Relative Index (RI) NON-AMI < or = 5 N/A SIMON ZONE > 5 < or = 4 AMI > 5 > 4 Radiology Order: EKG-ADULT Test: EKG-ADULT REASON FOR EXAMINATION: Chest Pain; Stationary ECG Study; [facility] - ED; ; Test Date: 2016-08-19; Pat Name: ANUJA WHITE Department:; Room: -; Gender: F 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; : 1940 Requested By: Amanda Plascencia; Order Number: [id number] Reading MD: Carmen Cavazos; Measurements; Intervals [place]; Rate: 64 P: 64; IL: 158 QRS: -6; QRSD: 89 T: 24; QT: 413; QTc: 426; Interpretive Statements; SINUS RHYTHM; NSTTW ABNORMALITY; INCREASED RATE 07/01/16; Electronically Signed On 08-20-2016 7:55:50 EST by Carmen Cavazos; Radiology Order: Chest, 1 View Test: Chest, 1 View REASON FOR EXAMINATION: Chest Pain; PORTABLE CHEST:; ; AP portable view of the chest is performed and compared to prior study of; 07/01/2016.; ; There is no evidence of acute infiltrate or pulmonary edema. There is mild; cardiomegaly. There is mild calcification of the thoracic aorta. 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 le 15:26 Discharge Assessment: Patient awake, alert and oriented x 3. No cognitive and/or ld5 functional deficits noted. Patient verbalized understanding of disposition instructions. patient administered narcotics - no. The following High Risk Discharge criteria are identified: None. Discharged to home ambulatory, with significant other. Condition: stable. Discharge instructions given to patient, significant other, Instructed on discharge instructions, follow up and referral plans. medication usage, Demonstrated understanding of instructions, Pt was receptive of discharge instructions/ teaching. No special radiology studies were completed. Property :Personal belongings accompany Pt. 15:31 Patient left the ED. ld5 Signatures: Dispatcher [employer] Stormy Brown, RN RN Chana Raya, Reg Reg Tiffany Castro RN RN kr3 Tanisha Foley, PRISONER CLASSIFICATION INTERVIEWER Alem Madera RN RN ld5 Sylvie Contreras, KEYING MACHINE OPERATOR KEYING MACHINE OPERATOR ct3 Ángela Hernandez Laura lr2 Chart Complete MTDD
--- NOTE | 2016-08-21 16:32 | EDDOCDS ---
Physician Documentation [facility] Name: Luz White Age: 75 yrs Sex: Female : 1940 Arrival Date: 08/19/2016 Time: 11:32 Bed 19 Private MD: Markie Chowdhury R. Disposition: 08/19 15:04 Critical Care: Critical care not applicable. le Disposition: 08/19/16 15:02 Discharged to Home/Self Care. Impression: Other chest pain, Angina pectoris. - Condition is Stable. - Discharge Instructions: Angina Pectoris. - Medication Reconciliation, Local Pharmacy Hours form. - Follow up: Taran Britton MD; When: Call to arrange an appointment; Reason: Recheck today's complaints, Continuance of care. - Problem is an acute exacerbation. - Symptoms are resolved. - Notes: Use your nitroglycerine if chest pain recurs. You can take it every 5 minutes. If you need to take the 3rd dose, call 911 and come to the hospital to be checked Call Dr Grider office to schedule a follow-up appointment Historical: - Allergies: No known drug Allergies; - Home Meds: 1. aspirin 81 mg Oral chew 1 tab once daily 2. risedronate 35 mg oral tab 1 tab once wkly 3. levothyroxine 25 mcg Oral tab 1 tab once daily 4. metoprolol tartrate 25 mg Oral tab 1 tab 2 times per day 5. Slow-Mag 71.5 mg Oral TbEC daily 6. CoQ-10 100 mg oral cap daily 7. atorvastatin 10 mg oral tab 1 tab every other night 8. Centrum Silver 0.4-300-250 mg-mcg-mcg oral tab daily 9. Calcium + Vitamin D Oral twice a day 10. vagifem 10 mcg three times a week 11. Metamucil Smooth Texture Oral twice a day 12. Lumigan 0.01 % ophthalmic drop 1 drop in each eye daily 13. clobetasol .05% to perineal area as needed 14. Fish Oil 1,000 mg Oral cap daily 15. nitroglycerin 0.4 mg SL subl 1 tab every 5 minutes as needed 16. Restasis 0.05 % ophthalmic dpet 1 drop 2 times per day - PMHx: Hypercholesterolemia; Hypertension; - PSHx: D & C; Tonsillectomy; fracture right arm; Cataract Surgery- Bilateral; - Social history: Smoking status: Patient states was never smoker of tobacco. No barriers to communication noted, The patient speaks fluent Yakut. - Family history: Not pertinent. - : The pt / caregiver states he / she is not on anticoagulants. Home medication list is obtained from the patient, [employer] import data. - Exposure Risk Screening:: None identified. Vital Signs: 11:34 BP 174 / 62; Pulse 63; Resp 18; Temp 97.0(O); Pulse Ox 97% on R/A; Weight 51.71 kg / ct3 114 lbs (R); Height 62 in. (157.48 cm) (R); Pain 6/10; 13:13 BP 114 / 56 (auto/); kr3 13:14 Pulse 58 MON; Pulse Ox 97% ; Pain 3/10; kr3 13:20 BP 115 / 58; Pulse 57; Pain 2/10; kr3 13:28 BP 125 / 57; Pulse 57; Pain 0/10; kr3 13:43 BP 120 / 59 (auto/); kr3 13:43 Pulse 62 MON; Pulse Ox 95% ; kr3 13:58 BP 128 / 60 (auto/); kr3 13:58 Pulse 58 MON; Pulse Ox 95% ; kr3 14:13 BP 115 / 58 (auto/); kr3 14:14 Pulse 56 MON; Pulse Ox 96% ; kr3 14:28 BP 115 / 58 (auto/); kr3 14:28 Pulse 54 MON; Pulse Ox 97% ; kr3 14:43 BP 111 / 55 (auto/); kr3 14:44 Pulse 56 MON; Pulse Ox 97% ; kr3 15:26 BP 130 / 60 (auto/); Pulse 58; Resp 16; Temp 97(O); Pulse Ox 97% on R/A; Pain 0/10; ld5 11:34 Body Mass Index 20.85 (51.71 kg, 157.48 cm) ct3 MDM: 11:43 ECG WITH READING ER PHYS+CARDIAG ordered. EDMS 11:53 IV Saline Lock ordered. ml 11:53 Forgeman Helper/Pulse Ox/q 15 min VS ordered. ml 11:53 Rhythm Strip to chart ordered. ml 11:54 CBC with Diff Ordered. EDMS 11:54 MED Profile Ordered. EDMS 11:54 CIP Ordered. EDMS 11:54 Troponin Ordered. EDMS 11:54 Liver Profile Ordered. EDMS 11:54 D-Dimer Quant Ordered. EDMS 11:55 Chest, 1 View Ordered. EDMS 12:57 CBC with Diff Reviewed. le 12:57 MED Profile Reviewed. le 12:57 CIP Reviewed. le 12:57 Troponin Reviewed. le 12:57 Liver Profile Reviewed. le 12:57 D-Dimer Quant Reviewed. le 12:58 Aspirin Chewable Tablet 324 mg PO once ordered. le 12:58 Nitrostat 0.4 mg Sublingual every 5 minutes; hold if SBP<90mmHg.Document Pain Score le Response to Each Dose x3 ordered. 12:59 2 GRAM SODIUM+DIET ordered. EDMS 13:04 Repeat EKG (put time details section) ordered. le 13:04 Redraw CIP &Troponin (put time in details section) ordered. le 13:08 Redraw CIP &Troponin (put time in details section) complete. rs6 13:08 Repeat EKG (put time details section) complete. rs6 13:12 ECG WITH READING ER PHYS ordered. EDMS 13:13 CARDIAC MARKER PANEL Ordered. EDMS 14:37 CARDIAC MARKER PANEL Reviewed. le 14:37 Chest, 1 View Reviewed. le 15:58 [facility] Payment Agreement was scanned into [employer] and attached to record. [facility] 15:58 Financial registration complete. [facility] 08/20 09:44 T-Sheet-- Draft Copy was scanned into [employer] and attached to record. gb 09:47 ECG/EKG was scanned into [employer] and attached to record. gb 09:48 Trend VS was scanned into [employer] and attached to record. gb 12:54 ECG/EKG was scanned into [employer] and attached to record. gb Administered Medications: 08/19 13:10 Drug: Aspirin 324 mg [aspirin 81 mg chewable tablet (4 tabs)] Route: PO; kr3 13:10 Drug: Nitrostat 0.4 mg [Nitrostat 0.4 mg sublingual tablet (1 tabs)] Route: Sublingual; kr3 13:20 Drug: Nitrostat 0.4 mg [Nitrostat 0.4 mg sublingual tablet (1 tabs)] Route: Sublingual; kr3 13:20 Follow up: BP 115 / 58; Pulse 57 bpm; Pain 2/10 Adult kr3 13:28 Follow up: BP 125 / 57; Pulse 57 bpm; Pain 0/10 Adult; Response: Pain is resolved kr3 Signatures: Dispatcher [employer] EDAmanda Garcia MD MD ml Sleeman, Kacey, RN RN kcs Chana Miranda, Reg Reg gb Tanisha Foley, SCHOOL LUNCH MANAGER SCHOOL LUNCH MANAGER Alem Myers RN RN ld5 Grace Pabon, WHOLESALE ACCOUNT MANAGER WHOLESALE ACCOUNT MANAGER rs6 Ángela Hernandez Kathleen RN kr3 The chart was reviewed and I authenticate all verbal orders and agree with the evaluation and treatment provided.Attachments: 15:58 [facility] Payment Agreement gjb 08/20 09:44 T-Sheet-- Draft Copy gb 09:47 ECG/EKG gb 12:54 ECG/EKG gb Chart Complete MTDD
--- NOTE | 2016-08-21 16:32 | EDDOCDS ---
Physician Documentation [facility] Name: Luz White Age: 75 yrs Sex: Female : 1940 Arrival Date: 08/19/2016 Time: 11:32 Bed 19 Private MD: Markie Chowdhury R. Disposition: 08/19 15:04 Critical Care: Critical care not applicable. le Disposition: 08/19/16 15:02 Discharged to Home/Self Care. Impression: Other chest pain, Angina pectoris. - Condition is Stable. - Discharge Instructions: Angina Pectoris. - Medication Reconciliation, Local Pharmacy Hours form. - Follow up: Taran Britton MD; When: Call to arrange an appointment; Reason: Recheck today's complaints, Continuance of care. - Problem is an acute exacerbation. - Symptoms are resolved. - Notes: Use your nitroglycerine if chest pain recurs. You can take it every 5 minutes. If you need to take the 3rd dose, call 911 and come to the hospital to be checked Call Dr Grider office to schedule a follow-up appointment Historical: - Allergies: No known drug Allergies; - Home Meds: 1. aspirin 81 mg Oral chew 1 tab once daily 2. risedronate 35 mg oral tab 1 tab once wkly 3. levothyroxine 25 mcg Oral tab 1 tab once daily 4. metoprolol tartrate 25 mg Oral tab 1 tab 2 times per day 5. Slow-Mag 71.5 mg Oral TbEC daily 6. CoQ-10 100 mg oral cap daily 7. atorvastatin 10 mg oral tab 1 tab every other night 8. Centrum Silver 0.4-300-250 mg-mcg-mcg oral tab daily 9. Calcium + Vitamin D Oral twice a day 10. vagifem 10 mcg three times a week 11. Metamucil Smooth Texture Oral twice a day 12. Lumigan 0.01 % ophthalmic drop 1 drop in each eye daily 13. clobetasol .05% to perineal area as needed 14. Fish Oil 1,000 mg Oral cap daily 15. nitroglycerin 0.4 mg SL subl 1 tab every 5 minutes as needed 16. Restasis 0.05 % ophthalmic dpet 1 drop 2 times per day - PMHx: Hypercholesterolemia; Hypertension; - PSHx: D & C; Tonsillectomy; fracture right arm; Cataract Surgery- Bilateral; - Social history: Smoking status: Patient states was never smoker of tobacco. No barriers to communication noted, The patient speaks fluent Yoruba. - Family history: Not pertinent. - : The pt / caregiver states he / she is not on anticoagulants. Home medication list is obtained from the patient, [employer] import data. - Exposure Risk Screening:: None identified. Vital Signs: 11:34 BP 174 / 62; Pulse 63; Resp 18; Temp 97.0(O); Pulse Ox 97% on R/A; Weight 51.71 kg / ct3 114 lbs (R); Height 62 in. (157.48 cm) (R); Pain 6/10; 13:13 BP 114 / 56 (auto/); kr3 13:14 Pulse 58 MON; Pulse Ox 97% ; Pain 3/10; kr3 13:20 BP 115 / 58; Pulse 57; Pain 2/10; kr3 13:28 BP 125 / 57; Pulse 57; Pain 0/10; kr3 13:43 BP 120 / 59 (auto/); kr3 13:43 Pulse 62 MON; Pulse Ox 95% ; kr3 13:58 BP 128 / 60 (auto/); kr3 13:58 Pulse 58 MON; Pulse Ox 95% ; kr3 14:13 BP 115 / 58 (auto/); kr3 14:14 Pulse 56 MON; Pulse Ox 96% ; kr3 14:28 BP 115 / 58 (auto/); kr3 14:28 Pulse 54 MON; Pulse Ox 97% ; kr3 14:43 BP 111 / 55 (auto/); kr3 14:44 Pulse 56 MON; Pulse Ox 97% ; kr3 15:26 BP 130 / 60 (auto/); Pulse 58; Resp 16; Temp 97(O); Pulse Ox 97% on R/A; Pain 0/10; ld5 11:34 Body Mass Index 20.85 (51.71 kg, 157.48 cm) ct3 MDM: 11:43 ECG WITH READING ER PHYS+CARDIAG ordered. EDMS 11:53 IV Saline Lock ordered. ml 11:53 Administrative Professional/Pulse Ox/q 15 min VS ordered. ml 11:53 Rhythm Strip to chart ordered. ml 11:54 CBC with Diff Ordered. EDMS 11:54 MED Profile Ordered. EDMS 11:54 CIP Ordered. EDMS 11:54 Troponin Ordered. EDMS 11:54 Liver Profile Ordered. EDMS 11:54 D-Dimer Quant Ordered. EDMS 11:55 Chest, 1 View Ordered. EDMS 12:57 CBC with Diff Reviewed. le 12:57 MED Profile Reviewed. le 12:57 CIP Reviewed. le 12:57 Troponin Reviewed. le 12:57 Liver Profile Reviewed. le 12:57 D-Dimer Quant Reviewed. le 12:58 Aspirin Chewable Tablet 324 mg PO once ordered. le 12:58 Nitrostat 0.4 mg Sublingual every 5 minutes; hold if SBP<90mmHg.Document Pain Score le Response to Each Dose x3 ordered. 12:59 2 GRAM SODIUM+DIET ordered. EDMS 13:04 Repeat EKG (put time details section) ordered. le 13:04 Redraw CIP &Troponin (put time in details section) ordered. le 13:08 Redraw CIP &Troponin (put time in details section) complete. rs6 13:08 Repeat EKG (put time details section) complete. rs6 13:12 ECG WITH READING ER PHYS ordered. EDMS 13:13 CARDIAC MARKER PANEL Ordered. EDMS 14:37 CARDIAC MARKER PANEL Reviewed. le 14:37 Chest, 1 View Reviewed. le 15:58 [facility] [place] was scanned into [employer] and attached to record. [facility] 15:58 Financial registration complete. [facility] 08/20 09:44 T-Sheet-- Draft Copy was scanned into [employer] and attached to record. gb 09:47 ECG/EKG was scanned into [employer] and attached to record. gb 09:48 Trend VS was scanned into [employer] and attached to record. gb 12:54 ECG/EKG was scanned into [employer] and attached to record. gb Administered Medications: 08/19 13:10 Drug: Aspirin 324 mg [aspirin 81 mg chewable tablet (4 tabs)] Route: PO; kr3 13:10 Drug: Nitrostat 0.4 mg [Nitrostat 0.4 mg sublingual tablet (1 tabs)] Route: Sublingual; kr3 13:20 Drug: Nitrostat 0.4 mg [Nitrostat 0.4 mg sublingual tablet (1 tabs)] Route: Sublingual; kr3 13:20 Follow up: BP 115 / 58; Pulse 57 bpm; Pain 2/10 Adult kr3 13:28 Follow up: BP 125 / 57; Pulse 57 bpm; Pain 0/10 Adult; Response: Pain is resolved kr3 Signatures: Dispatcher [employer] EDAmanda Garcia MD MD ml Sleeman, Kacey, RN RN kcs Chana Miranda, Reg Reg gb Tanisha Foley, BISCUIT MAKER BISCUIT MAKER Alem Myers RN RN ld5 Grace Pabon, TRANSIT AUTHORITY POLICE OFFICER TRANSIT AUTHORITY POLICE OFFICER rs6 Ángela Hernandez Kathleen RN kr3 The chart was reviewed and I authenticate all verbal orders and agree with the evaluation and treatment provided.Attachments: 15:58 [facility] Payment Agreement gjb 08/20 09:44 T-Sheet-- Draft Copy gb 09:47 ECG/EKG gb 12:54 ECG/EKG gb Chart Complete MTDD
== END 2016-08-19 15:31 | disposition home or self-care (01) ==
LOC: M ED 11:32
DX: I20.9 Angina pectoris, unspecified (principal); I10 Essential (primary) hypertension; E78.5 Hyperlipidemia, unspecified; Z79.899 Other long term (current) drug therapy; Z79.82 Long term (current) use of aspirin

== ENCOUNTER → 2016-10-18 | Outpatient (REF) | payer MEDICARE, OTHER ==
[2016-10-18 11:32] LABS: ALBUMIN 3.8 GM/DL (3.2-5.2); ALBUMIN/GLOBULIN RATIO 1.31 (1.00-1.93); ALKALINE PHOSPHATASE 72 U/L (45-117); ALT/SGPT 26 U/L (12-78); ANION GAP 9 MEQ/L (8-16); AST/SGOT 21 U/L (15-37); BILIRUBIN,TOTAL 0.6 MG/DL (0.2-1.0); BLOOD UREA NITROGEN 13 MG/DL (7-18); CALCIUM LEVEL 9.7 MG/DL (8.8-10.2); CARBON DIOXIDE LEVEL 29 MEQ/L (21-32); CHLORIDE LEVEL 103 MEQ/L (98-107); CHOLESTEROL LEVEL 181 MG/DL (<200); CREATININE FOR GFR 0.74 MG/DL (0.55-1.02); GLOMERULAR FILTRATION RATE > 60.0 (>39); GLUCOSE, FASTING 92 MG/DL (83-110); POTASSIUM SERUM 4.6 MEQ/L (3.5-5.1); SODIUM LEVEL 141 MEQ/L (136-145); TOTAL PROTEIN 6.7 GM/DL (6.4-8.2); TRIGLYCERIDES LEVEL 87 MG/DL (<150)
== END ==
LOC: M SFHCLERA 08:20
PROVIDERS: ATTEND Physician Assistant
DX: E78.2 Mixed hyperlipidemia (principal); E03.9 Hypothyroidism, unspecified; I10 Essential (primary) hypertension; I49.3 Ventricular premature depolarization; E83.42 Hypomagnesemia; M81.0 Age-related osteoporosis without current pathological fracture
CPT/HCPCS: 80053; 80061; 84443; G0463

== ENCOUNTER → 2017-01-30 | Outpatient (CLI) | payer MEDICARE, OTHER ==
[~2017-01-30] MED LIST changes: +CO Q100C PO; -CO Q1CAP PO; +METO25TA4 PO; -METO25TAB PO; +PERC5TAB12 PO; -PERC5TAB6 PO
--- NOTE | 2017-01-30 09:24 | REPMRS ---
Patient History The patient states she had a clinical breast exam in 01/20 Patient is postmenopausal. Family history of prostate cancer in 2 brothers at age 55. Took estrogen for 10 years. Took progesterone for 10 years. Digital Woman Screen Mammo: January 30, 2017 - Exam #: [id number] Bilateral CC and MLO view(s) were taken. Technologist: Farnaz Roberts, Technologist Prior study comparison: January 30, 2016, digital bilateral screening mammo, performed at [facility]. January 17, 2015, bilateral digital mammo screening bilat, performed at [facility]. FINDINGS: There are scattered fibroglandular densities. There has been no change in the appearance of the mammogram from the prior studies. There is a mild amount of residual fibroglandular tissue which is fairly symmetric. There is no interval development of dominant mass, architectural distortion, or clustered microcalcification suggestive of malignancy. ASSESSMENT: BI-RADS/ACR category 1 mammogram. Negative. Recommendation Routine screening mammogram in 1 year (for women over age 40). This mammogram was interpreted with the aid of an FDA-approved computer-aided dectection system. Electronically Signed By: Yaakov Simon MD 01/30/17 0935
== END ==
LOC: M WHC 07:57
PROVIDERS: ATTEND Obstetrics & Gynecology
DX: Z12.31 Encounter for screening mammogram for malignant neoplasm of breast (principal)

== ENCOUNTER → 2017-04-25 | Outpatient (REF) | payer MEDICARE, OTHER ==
[2017-04-25 11:41] LABS: MEAN CORPUSCULAR HEMOGLOBIN 30.1 pg (27.0-33.0); MEAN CORPUSCULAR HGB CONC 32.4 g/dl (32.0-36.5); MEAN CORPUSCULAR VOLUME 92.9 fl (80.0-96.0); PLATELET COUNT, AUTOMATED 167 10^3/uL (150-450); RED CELL DISTRIBUTION WIDTH 13.1 % (11.5-14.5); WHITE BLOOD COUNT 5.9 10^3/uL (4.0-10.0)
[2017-04-25 12:31] LABS: ALBUMIN 3.9 GM/DL (3.2-5.2); ALBUMIN/GLOBULIN RATIO 1.18 (1.00-1.93); ALKALINE PHOSPHATASE 70 U/L (45-117); ALT/SGPT 24 U/L (12-78); ANION GAP 6 MEQ/L (8-16); AST/SGOT 21 U/L (15-37); BILIRUBIN,TOTAL 0.6 MG/DL (0.2-1.0); BLOOD UREA NITROGEN 17 MG/DL (7-18); CALCIUM LEVEL 9.2 MG/DL (8.8-10.2); CARBON DIOXIDE LEVEL 30 MEQ/L (21-32); CHLORIDE LEVEL 104 MEQ/L (98-107); CHOLESTEROL LEVEL 180 MG/DL (<200); CREATININE FOR GFR 0.71 MG/DL (0.55-1.02); GLOMERULAR FILTRATION RATE > 60.0 (>39); GLUCOSE, FASTING 85 MG/DL (83-110); POTASSIUM SERUM 4.6 MEQ/L (3.5-5.1); SODIUM LEVEL 140 MEQ/L (136-145); TOTAL PROTEIN 7.2 GM/DL (6.4-8.2); TRIGLYCERIDES LEVEL 86 MG/DL (<150)
== END ==
LOC: M SFHCLERA 09:55
PROVIDERS: ATTEND Physician Assistant
DX: I10 Essential (primary) hypertension (principal); E78.2 Mixed hyperlipidemia; Z23 Encounter for immunization
CPT/HCPCS: 80053; 80061; 85027; 90471; 90662; G0463

== ENCOUNTER → 2017-10-21 | Outpatient (REF) | payer MEDICARE, OTHER ==
[2017-10-21 11:46] LABS: TOTAL 25(OH) VITAMIN D 44.4 NG/ML (30.0-100.0)
[2017-10-21 12:23] LABS: ALBUMIN/GLOBULIN RATIO 1.21 (1.00-1.93); ALKALINE PHOSPHATASE 76 U/L (45-117); ALT/SGPT 27 U/L (12-78); ANION GAP 6 MEQ/L (8-16); AST/SGOT 27 U/L (7-37); BILIRUBIN,TOTAL 0.6 MG/DL (0.2-1.0); BLOOD UREA NITROGEN 14 MG/DL (7-18); CALCIUM LEVEL 9.1 MG/DL (8.8-10.2); CARBON DIOXIDE LEVEL 30 MEQ/L (21-32); CHLORIDE LEVEL 105 MEQ/L (98-107); CHOLESTEROL LEVEL 202 MG/DL (<200); CHOLESTEROL RISK RATIO 3.423 (<5); CREATININE FOR GFR 0.68 MG/DL (0.55-1.30); GLOMERULAR FILTRATION RATE > 60.0 (>39); GLUCOSE, FASTING 85 MG/DL (70-100); HDL CHOLESTEROL 59 MG/DL (>40); NON-HDL-C 143 MG/DL; POTASSIUM SERUM 4.9 MEQ/L (3.5-5.1); SODIUM LEVEL 141 MEQ/L (136-145); TOTAL PROTEIN 7.3 GM/DL (6.4-8.2); TRIGLYCERIDES LEVEL 140 MG/DL (<150)
== END ==
LOC: M SFHCLERA 09:19
DX: I10 Essential (primary) hypertension (principal); M81.0 Age-related osteoporosis without current pathological fracture
CPT/HCPCS: 80053

== ENCOUNTER → 2018-02-10 | Outpatient (CLI) | payer MEDICARE, OTHER | LOC: M WHC 09:28 | DX: Z12.31 Encounter for screening mammogram for malignant neoplasm of breast (principal); M81.0 Age-related osteoporosis without current pathological fracture; N60.31 Fibrosclerosis of right breast; N60.32 Fibrosclerosis of left breast; M85.851 Other specified disorders of bone density and structure, right thigh; M85.852 Other specified disorders of bone density and structure, left thigh; M85.88 Other specified disorders of bone density and structure, other site | CPT/HCPCS: 77067 ==

== ENCOUNTER → 2018-04-14 | Outpatient (REF) | payer MEDICARE, OTHER ==
[2018-04-14 11:45] LABS: BASO # 0.1 10^3/uL (0.0-0.2); BASO % 0.8 % (0.0-1.0); EOS # 0.2 10^3/uL (0.0-0.50); EOS % 2.7 % (0.0-3.0); HEMATOCRIT 43.8 % (36.0-47.0); HEMOGLOBIN 14.4 g/dl (12.0-15.5); IMMATURE GRANULOCYTE % 0.7 % (0-3.0); LYMPH # 2.1 10^3/uL (1.5-4.5); LYMPH % 27.2 % (24.0-44.0); MEAN CORPUSCULAR HEMOGLOBIN 30.6 pg (27.0-33.0); MEAN CORPUSCULAR HGB CONC 32.9 g/dl (32.0-36.5); MEAN CORPUSCULAR VOLUME 93.2 fl (80.0-96.0); MONO % 13.8 % (0.0-5.0); NEUTROPHILS # 4.1 10^3/uL (1.8-7.7); NEUTROPHILS % 54.8 % (36.0-66.0); PLATELET COUNT, AUTOMATED 185 10^3/uL (150-450); RED CELL DISTRIBUTION WIDTH 13.1 % (11.5-14.5); WHITE BLOOD COUNT 7.5 10^3/uL (4.0-10.0)
[2018-04-14 12:21] LABS: MAGNESIUM LEVEL 2.4 MG/DL (1.8-2.4)
== END ==
LOC: M SFHCLERA 08:02
DX: E03.9 Hypothyroidism, unspecified (principal); E83.42 Hypomagnesemia; R53.83 Other fatigue; Z23 Encounter for immunization
CPT/HCPCS: 83735

== ENCOUNTER → 2018-10-13 | Outpatient (REF) | payer MEDICARE, OTHER ==
[2018-10-13 14:10] LABS: ALT/SGPT 22 U/L (12-78); BILIRUBIN,TOTAL 0.6 MG/DL (0.2-1.0); BLOOD UREA NITROGEN 14 MG/DL (7-18); CALCIUM LEVEL 9.8 MG/DL (8.8-10.2); CARBON DIOXIDE LEVEL 30 MEQ/L (21-32); CHLORIDE LEVEL 104 MEQ/L (98-107); CHOLESTEROL LEVEL 201 MG/DL (<200); CREATININE FOR GFR 0.68 MG/DL (0.55-1.30); GLOMERULAR FILTRATION RATE > 60.0 (>39); GLUCOSE, FASTING 94 MG/DL (70-100); HDL CHOLESTEROL 71 MG/DL (>40); LDL CHOLESTEROL 112 MG/DL (<100); NON-HDL-C 130 MG/DL; POTASSIUM SERUM 4.6 MEQ/L (3.5-5.1); SODIUM LEVEL 139 MEQ/L (136-145); TOTAL PROTEIN 7.1 GM/DL (6.4-8.2); TRIGLYCERIDES LEVEL 88 MG/DL (<150)
== END ==
LOC: M SFHCLERA 09:58
PROVIDERS: ATTEND Family Medicine
DX: E78.2 Mixed hyperlipidemia (principal); E03.9 Hypothyroidism, unspecified
CPT/HCPCS: 80053; 80061; 84443; G0463

== ENCOUNTER 2018-11-23 10:26 | Emergency (ER) | payer MEDICARE, OTHER ==
[~2018-11-23] VITALS: Ht 157.5 cm; Wt 54.5 kg
--- NOTE | 2018-11-23 10:58 | REP ---
Chest one-view HISTORY: Chest pain Comparison: 08/19/2016 The lungs are clear. The cardiac silhouette is enlarged. The pulmonary vasculature is normal in appearance. Impression: Cardiomegaly. Electronically Signed by Shaheed Ross MD 11/23/2018 10:49 A
[2018-11-23] MEDS ORDERED: ASPIRIN 81 MG CHEW TABLET PO ONE (11:00)
[2018-11-23] MEDS ORDERED: ONDANSETRON 4MG/2ML VIAL (J2405) IV ONE (11:00)
[2018-11-23] MEDS ORDERED: NS 500 ML IV ONE (11:00)
[2018-11-23 11:10] LABS: BASO # 0.1 10^3/uL (0.0-0.2); BASO % 0.9 % (0.0-1.0); EOS # 0.2 10^3/uL (0.0-0.50); EOS % 2.3 % (0.0-3.0); HEMATOCRIT 41.8 % (36.0-47.0); HEMOGLOBIN 13.7 g/dl (12.0-15.5); LYMPH # 2.8 10^3/uL (1.5-4.5); LYMPH % 30.5 % (24.0-44.0); MEAN CORPUSCULAR HEMOGLOBIN 31.1 pg (27.0-33.0); MEAN CORPUSCULAR HGB CONC 32.8 g/dl (32.0-36.5); MEAN CORPUSCULAR VOLUME 94.8 fl (80.0-96.0); MONO # 1.1 10^3/uL (0.0-0.8); PLATELET COUNT, AUTOMATED 189 10^3/uL (150-450); RED BLOOD COUNT 4.41 10^6/uL (4.00-5.40); WHITE BLOOD COUNT 9.2 10^3/uL (4.0-10.0)
[2018-11-23] MEDS: MORPHINE 2 MG/ML 1ML SYRINGE (J2270) IV PRN ×2 (11:11→11:23)
[2018-11-23 11:21] LABS: INR 1.02; PROTHROMBIN TIME 13.5 SECONDS (12.1-14.4)
[2018-11-23 11:22] LABS: PARTIAL THROMBOPLASTIN TIME 26.5 SECONDS (25.4-37.6)
[2018-11-23] MEDS ORDERED: MORPHINE 2 MG/ML 1ML SYRINGE (J2270) IV ONE (11:45)
[2018-11-23 11:46] LABS: ALBUMIN 4.2 GM/DL (3.2-5.2); ALT/SGPT 21 U/L (12-78); BILIRUBIN,DIRECT 0.2 MG/DL (0.0-0.2); BILIRUBIN,TOTAL 0.6 MG/DL (0.2-1.0); BLOOD UREA NITROGEN 14 MG/DL (7-18); CALCIUM LEVEL 9.2 MG/DL (8.8-10.2); CARBON DIOXIDE LEVEL 27 MEQ/L (21-32); CHLORIDE LEVEL 106 MEQ/L (98-107); CPK CREATINE PHOSPHOKINASE 87 U/L (26-192); CREATININE FOR GFR 0.81 MG/DL (0.55-1.30); FREE T4 1.41 NG/DL (0.76-1.46); GLOMERULAR FILTRATION RATE > 60.0 (>39); GLUCOSE, FASTING 98 MG/DL (70-100); LIPASE 208 U/L (73-393); MB/CK RELATIVE INDEX 2.41 (< OR =4); POTASSIUM SERUM 5.1 MEQ/L (3.5-5.1); SODIUM LEVEL 139 MEQ/L (136-145); TOTAL PROTEIN 6.7 GM/DL (6.4-8.2); TROPONIN I < 0.02 NG/ML (< 0.10)
[2018-11-23] MEDS ORDERED: ISOVUE-370 76% 100ML VIAL (Q9967) As Ordered ONE (12:04)
--- NOTE | 2018-11-23 13:04 | REP ---
CT ANGIOGRAM OF THE CHEST: TECHNIQUE: Axial contrast enhanced images from the thoracic inlet to the upper abdomen using 100 mL Isovue 370 intravenous contrast material with multiplanar reformations. There is no CT evidence of pulmonary embolism. There is no thoracic aortic aneurysm or dissection. Mild scattered atherosclerotic calcifications are seen of the thoracic aorta. There is no mediastinal, hilar, or chest wall lymphadenopathy. There is no pleural or pericardial effusion. There is mild cardiomegaly. There appears to be a small hiatal hernia. There are two stable cysts in the liver. These are unchanged since the prior study of 02/26/2016. Two tiny calcified granulomas are seen in the right upper lobe. There are two stable noncalcified nodules in the right lower lobe compared to prior study of 02/26/2016, the larger measuring 5 mm in maximum diameter. Scattered diffuse interstitial fibrotic changes are seen without definite acute infiltrate. IMPRESSION: No CT evidence of pulmonary embolism or aortic dissection. Mild cardiomegaly. Small hiatal hernia. Electronically Signed by Yaakov Simon MD 11/23/2018 07:48 P
[2018-11-23 15:41] LABS: CPK CREATINE PHOSPHOKINASE 61 U/L (26-192); MB/CK RELATIVE INDEX 2.79 (< OR =4); TROPONIN I < 0.02 NG/ML (< 0.10)
[2018-11-23 16:30] VITALS: BP 110/56
--- NOTE | 2018-11-23 23:47 | ECGEPIP ---
Stationary ECG Study [facility] - ED Test Date: 2018-11-23 Pat Name: ANUJA RODRIGUEZ Department: Room: - Gender: F Director Of Digital Platforms: ANTHONY : 1940 Requested By: Amanda Plascencia Order Number: [id number] Reading MD: Silvano Sotelo Measurements Intervals [place] Rate: 58 P: 75 [place]: 163 QRS: 17 QRSD: 84 T: 34 QT: 422 QTc: 417 Interpretive Statements SINUS BRADYCARDIA Nonspecific ST-T wave abnormalities Motion artifact Electronically Signed On 11-23-2018 23:47:36 EDT by Silvano Sotelo
--- NOTE | 2018-11-24 00:04 | ECGEPIP ---
Stationary ECG Study [facility] - ED Test Date: 2018-11-23 Pat Name: ANUJA RODRIGUEZ Department: Room: - Gender: F Toe Former [place]: TC : 1940 Requested By: Amanda Plascencia Order Number: [id number] Reading MD: Silvano Sotelo Measurements Intervals [place] Rate: 54 P: 77 [place]: 182 QRS: 7 QRSD: 90 T: 23 QT: 425 QTc: 406 Interpretive Statements SINUS BRADYCARDIA Nonspecific ST-T wave abnormalities Similar to tracing done same day at 10:39 Electronically Signed On 11-24-2018 0:04:17 EDT by Silvano Sotelo
== END 2018-11-23 16:47 | disposition home or self-care (01) ==
LOC: M ED 10:26
DX: R07.9 Chest pain, unspecified (principal); R00.1 Bradycardia, unspecified; I10 Essential (primary) hypertension; E78.5 Hyperlipidemia, unspecified; I51.7 Cardiomegaly; K44.9 Diaphragmatic hernia without obstruction or gangrene; Z79.899 Other long term (current) drug therapy
CPT/HCPCS: 71045; 71275; 80048; 80076; 82550; 82553; 83690; 84439; 84443; 84484; 85025; 85610; 85730; 93005; 93041; 94760; 96361; 96374; 96375; 96376; 99285; J2270; J2405; Q9967

== ENCOUNTER → 2019-02-04 | Outpatient (CLI) | payer MEDICARE, OTHER ==
--- NOTE | 2019-02-04 09:54 | REP ---
BILATERAL SCREENING DIGITAL MAMMOGRAM WITH 3D TOMOSYNTHESIS: There are no palpable abnormalities or other breast complaints. The the patient states she has not had a clinical breast examination in over a year. The the patient states she performs self-breast examinations this times per year. The Tyrer Cuzick Score is: 2.1% of . Comparisons are 01/04/2013, 01/30/2016, 01/30/2017 and 02/10/2018. The breasts are heterogeneously dense, which could obscure small masses. There is no dominant mass, micro calcific cluster or architectural distortion that would indicate malignancy. There are no additional findings on 3D tomosynthesiss. There is no change from the prior study. Impression: BIRADS/ACR category 1 mammogram. Negative. Recommendation: Routine annual screening mammography. Because of the increased breast density, annual adjunctive breast MRI in addition to screening mammography is recommended. This mammogram was interpreted with the aid of a FDA approved computer-aided detection system. A. Negative mammogram reports should not delay biopsy if a dominant or clinically suspicious mass is present. B. Not all breast cancers are identified by mammography or tomosynthesis. C. Adenosis and dense breasts may obscure an underlying neoplasm. Patient letter M1 dense breasts. Electronically Signed by Yaakov Obregon MD 02/04/2019 09:44 A
== END ==
LOC: M WHC 08:27
PROVIDERS: ATTEND Obstetrics & Gynecology
DX: Z12.31 Encounter for screening mammogram for malignant neoplasm of breast (principal)

== ENCOUNTER → 2019-04-14 | Outpatient (REF) | payer MEDICARE, OTHER ==
[2019-04-14 11:53] LABS: BLOOD UREA NITROGEN 13 MG/DL (7-18); CALCIUM LEVEL 9.3 MG/DL (8.8-10.2); CARBON DIOXIDE LEVEL 30 MEQ/L (21-32); CHLORIDE LEVEL 102 MEQ/L (98-107); CREATININE FOR GFR 0.78 MG/DL (0.55-1.30); GLOMERULAR FILTRATION RATE > 60.0 (>39); GLUCOSE, FASTING 89 MG/DL (70-100); MAGNESIUM LEVEL 2.4 MG/DL (1.8-2.4); POTASSIUM SERUM 4.5 MEQ/L (3.5-5.1); SODIUM LEVEL 138 MEQ/L (136-145)
== END ==
LOC: M SFHCLERA 08:33
PROVIDERS: ATTEND Family Medicine
DX: E03.9 Hypothyroidism, unspecified (principal); I10 Essential (primary) hypertension; E83.42 Hypomagnesemia; R30.0 Dysuria; Z23 Encounter for immunization
CPT/HCPCS: 80048; 83735; 84443; 87088; 87186; 90682; G0008; G0463

== ENCOUNTER → 2019-04-22 | Outpatient (REF) | payer MEDICARE, OTHER ==
[2019-04-22 12:58] LABS: BASO # 0.1 10^3/uL (0.0-0.2); BASO % 0.7 % (0.0-1.0); EOS # 0.1 10^3/uL (0.0-0.5); EOS % 1.4 % (0.0-3.0); HEMATOCRIT 41.5 % (36.0-47.0); HEMOGLOBIN 13.3 g/dl (12.0-15.5); LYMPH # 2.7 10^3/uL (1.5-5.0); LYMPH % 26.3 % (24.0-44.0); MEAN CORPUSCULAR HEMOGLOBIN 30.4 pg (27.0-33.0); MEAN CORPUSCULAR VOLUME 94.7 fl (80.0-96.0); MONO % 9.3 % (0.0-5.0); NEUTROPHILS # 6.3 10^3/uL (1.5-8.5); NEUTROPHILS % 61.7 % (36.0-66.0); PLATELET COUNT, AUTOMATED 281 10^3/uL (150-450); RED BLOOD COUNT 4.38 10^6/uL (4.00-5.40); WHITE BLOOD COUNT 10.2 10^3/uL (4.0-10.0)
[2019-04-22 13:11] LABS: ALBUMIN 3.5 GM/DL (3.2-5.2); ALT/SGPT 23 U/L (12-78); BILIRUBIN,TOTAL 0.5 MG/DL (0.2-1.0); BLOOD UREA NITROGEN 14 MG/DL (7-18); CALCIUM LEVEL 9.1 MG/DL (8.8-10.2); CARBON DIOXIDE LEVEL 28 MEQ/L (21-32); CHLORIDE LEVEL 105 MEQ/L (98-107); CREATININE FOR GFR 0.74 MG/DL (0.55-1.30); GLOMERULAR FILTRATION RATE > 60.0 (>39); GLUCOSE, FASTING 84 MG/DL (70-100); POTASSIUM SERUM 4.5 MEQ/L (3.5-5.1); SODIUM LEVEL 139 MEQ/L (136-145); TOTAL PROTEIN 6.9 GM/DL (6.4-8.2)
[2019-04-22 13:14] LABS: INR 1.08; PROTHROMBIN TIME 13.7 SECONDS (11.8-14.0)
[2019-04-22 13:15] LABS: PARTIAL THROMBOPLASTIN TIME 28.5 SECONDS (25.0-38.4)
== END ==
LOC: M SFHCLERA 10:56
PROVIDERS: ATTEND Family Medicine
DX: K92.1 Melena (principal)
CPT/HCPCS: 80053; 85025; 85610; 85730; 87338; G0463

== ENCOUNTER → 2019-04-23 | Outpatient (REF) | payer MEDICARE, OTHER | LOC: M SFHCLERA 14:41 | PROVIDERS: ATTEND Nurse Practitioner Family | DX: N30.01 Acute cystitis with hematuria (principal) | CPT/HCPCS: 81002; 87088; 87186; G0463 ==

== ENCOUNTER → 2019-07-08 | Outpatient (CLI) | payer MEDICARE, OTHER ==
--- NOTE | 2019-07-08 19:33 | REP ---
HISTORY: Cough. There is lung field hyperexpansion, status quo. There is mild cardiomegaly, status quo. There are no acute patchy parenchymal opacities or pleural effusions. There is no change in the osseous structures. IMPRESSION: Chronic changes. No evidence of acute disease. Electronically Signed by Papa Nichols DO 07/08/2019 07:51 P
== END ==
LOC: M LRY 19:01
PROVIDERS: ATTEND Physician Assistant
DX: I51.7 Cardiomegaly (principal); R05 Cough; R06.2 Wheezing
CPT/HCPCS: 71046; 94640; G0463

== ENCOUNTER → 2019-07-12 | Outpatient (CLI) | payer MEDICARE, OTHER ==
--- NOTE | 2019-07-12 11:25 | REP ---
CHEST, TWO VIEWS: Comparison 07/08/2019. There is no evidence of acute infiltrate. No pleural effusion is seen. The heart is normal in size. The mediastinal silhouette is unremarkable. The visualized osseous structures are intact. There is mild calcification of the thoracic aorta. IMPRESSION: No acute pulmonary disease. Electronically Signed by Yaakov Simon MD 07/12/2019 07:34 P
== END ==
LOC: M LRY 09:14
PROVIDERS: ATTEND Family Medicine
DX: R05 Cough (principal)
CPT/HCPCS: 71046; 87804; G0463

== ENCOUNTER 2019-08-26 10:33 | Day surgery (SDC) | payer MEDICARE, OTHER ==
[~2019-08-26] VITALS: Ht 157.5 cm; Wt 52.6 kg
[~2019-08-26 10:33] MED LIST changes: +AMLO25TA PO; +ASPI81TA85 PO; +FIBE625T PO; +LIDOCAINE 2% INJ 100 MG/5 ML SDV (FOR ANES.) As Ordered ONE; +NS 1,000 ML IV ONE; +PEG31POW PO; +propofoL 200 MG/20 ML VIAL As Ordered ONE
[2019-08-26] MEDS ORDERED: fentaNYL 100 MCG/2 ML INJECTION (J3010) As Ordered ONE (11:26)
--- NOTE | 2019-08-26 11:27 | ROOR ---
Patient Name: Luz White Procedure Date: 08/26/2019 11:14 AM Date of : 1940 Age: 78 Room: [facility] Gender: Female Note Status: Finalized Procedure: Upper GI endoscopy Indications: Melena Providers: Silvano KILGORE MD Referring MD: Yaakov BORJA MD Requesting Provider: Medicines: Monitored Anesthesia Care Complications: No immediate complications. Procedure: Pre-Anesthesia Assessment: - The heart rate, respiratory rate, oxygen saturations, blood pressure, adequacy of pulmonary ventilation, and response to care were monitored throughout the procedure. The Endoscope was introduced through the mouth, and advanced to the second part of duodenum. The upper GI endoscopy was accomplished without difficulty. The patient tolerated the procedure well. Findings: Non-severe esophagitis was found at the gastroesophageal junction. Biopsies were taken with a cold forceps for histology. Minimal inflammation was found in the gastric antrum. Biopsies were taken with a cold forceps for histology. The exam was otherwise without abnormality. Impression: - Minimal reflux esophagitis. Biopsied. - Minimal gastritis. Biopsied. - The examination was otherwise normal. Recommendation: - Continue present medications. - Observe patient's clinical course. - Follow an antireflux regimen. - Telephone endoscopist for pathology results in 2 weeks. Silvano Kilgore MD Silvano KILGORE MD 08/26/2019 11:27:37 AM Electronically signed by Silvano KILGORE MD Number of Addenda: 0 Note Initiated On: 08/26/2019 11:14 AM Estimated Blood Loss: Estimated blood loss: none.
--- NOTE | 2019-08-26 11:49 | ROOR ---
Patient Name: Luz White Procedure Date: 08/26/2019 11:14 AM Date of : 1940 Age: 78 Room: [facility] [id number] Gender: Female Note Status: Finalized Procedure: Colonoscopy Indications: Change in bowel habits Providers: Silvano KILGORE MD Referring MD: Yaakov BORJA MD Requesting Provider: Medicines: Monitored Anesthesia Care Complications: No immediate complications. Procedure: Pre-Anesthesia Assessment: - The heart rate, respiratory rate, oxygen saturations, blood pressure, adequacy of pulmonary ventilation, and response to care were monitored throughout the procedure. The Colonoscope was introduced through the anus and advanced to the cecum, identified by appendiceal orifice and ileocecal valve. The colonoscopy was performed without difficulty. The patient tolerated the procedure well. The quality of the bowel preparation was good. Findings: The perianal exam findings include a perianal fungal rash. The sigmoid colon was significantly tortuous. Multiple medium-mouthed diverticula were found in the sigmoid colon. Internal hemorrhoids were found during retroflexion. The hemorrhoids were medium-sized. The exam was otherwise without abnormality on direct and retroflexion views. Impression: - Perianal fungal rash found on perianal exam. - Tortuous sigmoid colon with extensive diverticulosis. (there is no significant narrowing however) - Internal hemorrhoids. - The examination was otherwise normal on direct and retroflexion views. - No specimens collected. Recommendation: - Continue present medications. - Continue combination of Miralax and Fiber supplementation. (- script for a skin cream for the perianal rash was sent to your pharmacy) Silvano Kilgore MD Silvano KILGORE MD 08/26/2019 11:49:27 AM Electronically signed by Silvano KILGORE MD Number of Addenda: 0 Note Initiated On: 08/26/2019 11:14 AM Estimated Blood Loss: Estimated blood loss: none.
[2019-08-26 12:05] VITALS: BP 114/59
== END 2019-08-26 12:14 | disposition home or self-care (01) ==
LOC: M OPP 10:33
PROVIDERS: ATTEND Internal Medicine Gastroenterology
DX: B35.6 Tinea cruris (principal); K64.8 Other hemorrhoids; Q43.8 Other specified congenital malformations of intestine; R19.4 Change in bowel habit; K21.0 Gastro-esophageal reflux disease with esophagitis; K29.70 Gastritis, unspecified, without bleeding; K92.1 Melena; Z79.82 Long term (current) use of aspirin; Z79.899 Other long term (current) drug therapy
CPT/HCPCS: 43239; 45378; 88305; J3010

== ENCOUNTER → 2019-11-08 | Outpatient (REF) | payer MEDICARE, OTHER ==
[~2019-11-08] MED LIST changes: -LIDOCAINE 2% INJ 100 MG/5 ML SDV (FOR ANES.) As Ordered ONE; -NS 1,000 ML IV ONE; -propofoL 200 MG/20 ML VIAL As Ordered ONE
[2019-11-08 12:28] LABS: BASO # 0.1 10^3/uL (0.0-0.2); BASO % 0.7 % (0.0-1.0); EOS # 0.2 10^3/uL (0.0-0.5); EOS % 2.3 % (0.0-3.0); HEMATOCRIT 41.6 % (36.0-47.0); HEMOGLOBIN 13.4 g/dl (12.0-15.5); LYMPH # 3.2 10^3/uL (1.5-5.0); LYMPH % 39.5 % (24.0-44.0); MEAN CORPUSCULAR HEMOGLOBIN 30.5 pg (27.0-33.0); MEAN CORPUSCULAR HGB CONC 32.2 g/dl (32.0-36.5); MEAN CORPUSCULAR VOLUME 94.5 fl (80.0-96.0); MONO # 1.1 10^3/uL (0.0-0.8); MONO % 13.6 % (0.0-5.0); NEUTROPHILS # 3.5 10^3/uL (1.5-8.5); NEUTROPHILS % 43.5 % (36.0-66.0); PLATELET COUNT, AUTOMATED 190 10^3/uL (150-450); WHITE BLOOD COUNT 8.2 10^3/uL (4.0-10.0)
[2019-11-08 12:43] LABS: BLOOD UREA NITROGEN 12 MG/DL (7-18); CALCIUM LEVEL 9.2 MG/DL (8.8-10.2); CARBON DIOXIDE LEVEL 29 MEQ/L (21-32); CHLORIDE LEVEL 105 MEQ/L (98-107); CREATININE FOR GFR 0.72 MG/DL (0.55-1.30); GLOMERULAR FILTRATION RATE > 60.0 (>39); GLUCOSE, FASTING 84 MG/DL (70-100); POTASSIUM SERUM 4.9 MEQ/L (3.5-5.1); SODIUM LEVEL 138 MEQ/L (136-145); TRIGLYCERIDES LEVEL 108 MG/DL (<150)
[2019-11-08 12:44] LABS: CHOLESTEROL LEVEL 182 MG/DL (<200); CHOLESTEROL RISK RATIO 2.843 (<5); HDL CHOLESTEROL 64 MG/DL (>40); LDL CHOLESTEROL 96 MG/DL (<100); NON-HDL-C 118 MG/DL
== END ==
LOC: M SFHCLERA 09:34
PROVIDERS: ATTEND Family Medicine
DX: E03.9 Hypothyroidism, unspecified (principal); E78.2 Mixed hyperlipidemia; D72.829 Elevated white blood cell count, unspecified; I10 Essential (primary) hypertension

== ENCOUNTER 2020-02-04 19:30 | Emergency (ER) | payer MEDICARE, OTHER ==
[~2020-02-04 19:30] MED LIST changes: -ASPI81TA85 PO; +ASPI81TA86 PO
[2020-02-04] MEDS ORDERED: ASPIRIN 81 MG CHEW TABLET ONE (20:23)
[2020-03-12 17:08] LABS: BASO # 0.1 10^3/uL (0.0-0.2); BASO % 0.8 % (0.0-1.0); EOS # 0.2 10^3/uL (0.0-0.5); EOS % 2.2 % (0.0-3.0); HEMOGLOBIN 13.3 g/dl (12.0-15.5); LYMPH # 2.6 10^3/uL (1.5-5.0); LYMPH % 35.5 % (24.0-44.0); MEAN CORPUSCULAR HEMOGLOBIN 30.4 pg (27.0-33.0); MEAN CORPUSCULAR HGB CONC 32.4 g/dl (32.0-36.5); MEAN CORPUSCULAR VOLUME 93.6 fl (80.0-96.0); MONO % 13.6 % (0.0-5.0); NEUTROPHILS # 3.5 10^3/uL (1.5-8.5); NEUTROPHILS % 47.5 % (36.0-66.0); PLATELET COUNT, AUTOMATED 179 10^3/uL (150-450); RED BLOOD COUNT 4.38 10^6/uL (4.00-5.40); WHITE BLOOD COUNT 7.3 10^3/uL (4.0-10.0)
--- NOTE | 2020-03-23 17:25 | ECGEPIP ---
SINUS RHYTHM WITH SHORT IN INTERVAL SEE SCANNED DOWNTIME REPORT MTDD
[2020-04-15 09:25] LABS: BLOOD UREA NITROGEN 15 MG/DL (7-18); CALCIUM LEVEL 9.6 MG/DL (8.8-10.2); CARBON DIOXIDE LEVEL 33 MEQ/L (21-32); CHLORIDE LEVEL 106 MEQ/L (98-107); CHOLESTEROL LEVEL 163 MG/DL (<200); CHOLESTEROL RISK RATIO 2.328 (<5); CK-MB VALUE MASS < 1.0 NG/ML (<3.6); CPK CREATINE PHOSPHOKINASE 61 U/L (26-192); CREATININE FOR GFR 0.71 MG/DL (0.55-1.30); GLOMERULAR FILTRATION RATE > 60.0 (>39); GLUCOSE, FASTING 96 MG/DL (70-100); HDL CHOLESTEROL 70 MG/DL (>40); LDL CHOLESTEROL 79 MG/DL (<100); LIPASE 251 U/L (73-393); MB/CK RELATIVE INDEX 1.64 (< OR =4); NON-HDL-C 93 MG/DL; POTASSIUM SERUM 4.7 MEQ/L (3.5-5.1); SODIUM LEVEL 142 MEQ/L (136-145); TRIGLYCERIDES LEVEL 69 MG/DL (<150); TROPONIN I < 0.02 NG/ML (< 0.10)
== END 2020-02-04 22:10 | disposition home or self-care (01) ==
LOC: M ED 19:30
DX: K21.9 Gastro-esophageal reflux disease without esophagitis (principal); R06.02 Shortness of breath; I10 Essential (primary) hypertension; E78.5 Hyperlipidemia, unspecified; E07.9 Disorder of thyroid, unspecified; K20.9 Esophagitis, unspecified; Z79.899 Other long term (current) drug therapy; Z79.82 Long term (current) use of aspirin

== ENCOUNTER → 2020-02-16 | Outpatient (CLI) | payer MEDICARE, OTHER ==
--- NOTE | 2020-03-07 16:42 | REPMRS ---
Patient History The patient states she had a clinical breast exam in February 2020.Patient is postmenopausal. Family history of prostate cancer at age 55 in brother, prostate cancer at age 55 in brother. Took estrogen for 10 years. Took progesterone for 10 years. Digital Woman Screen Mammo: February 16, 2020 - Exam #: [id number] Bilateral CC and MLO view(s) were taken. Technologist: Dulce Vee, Technologist Prior study comparison: February 04, 2019, bilateral digital woman screen mammo performed at [facility]. February 10, 2018, bilateral digital woman screen mammo performed at [facility]. January 30, 2017, digital woman screen mammo performed at [facility]. FINDINGS: There are scattered fibroglandular densities. The Volpara volumetric breast density category is:B. There has been no change in the appearance of the mammogram from the prior studies. There is a mild amount of scattered fibroglandular density which is fairly symmetric. There is no interval development of dominant mass, architectural distortion, or grouped microcalcification suggestive of malignancy. 3-D tomosynthesis shows no additional findings. Assessment: BI-RADS/ACR category 1 mammogram. Negative Mammogram. Recommendation Routine screening mammogram of both breasts in 1 year (for women over age 40). This patient's Lifetime Breast Cancer Risk is estimated at 1.8 %. This mammogram was interpreted with the aid of an FDA-approved computer-aided dectection system. Electronically Signed By: Sam Mensah MD 03/07/20 0776
== END ==
LOC: M WHC 07:49
PROVIDERS: ATTEND Obstetrics & Gynecology
DX: Z12.31 Encounter for screening mammogram for malignant neoplasm of breast (principal); Z78.0 Asymptomatic menopausal state

== ENCOUNTER → 2020-07-19 | Outpatient (REF) | payer MEDICARE, OTHER | LOC: M PLALAB 11:28 | PROVIDERS: ATTEND Family Medicine | DX: E03.9 Hypothyroidism, unspecified (principal) ==

== ENCOUNTER → 2020-12-07 | Outpatient (REF) | payer MEDICARE, OTHER ==
[~2020-12-07] MED LIST changes: +ASPI-569 PO; -ASPI81TAEC PO
[2020-12-07 13:34] LABS: BASO # 0.1 10^3/uL (0.0-0.2); BASO % 0.7 % (0.0-1.0); EOS # 0.2 10^3/uL (0.0-0.5); EOS % 2.2 % (0.0-3.0); HEMATOCRIT 43.2 % (36.0-47.0); HEMOGLOBIN 13.9 g/dl (12.0-15.5); LYMPH # 2.9 10^3/uL (1.5-5.0); LYMPH % 38.5 % (24.0-44.0); MEAN CORPUSCULAR HEMOGLOBIN 30.6 pg (27.0-33.0); MEAN CORPUSCULAR HGB CONC 32.2 g/dl (32.0-36.5); MEAN CORPUSCULAR VOLUME 95.2 fl (80.0-96.0); MONO # 0.9 10^3/uL (0.0-0.8); MONO % 12.4 % (2.0-8.0); NEUTROPHILS # 3.4 10^3/uL (1.5-8.5); NEUTROPHILS % 45.9 % (36.0-66.0); PLATELET COUNT, AUTOMATED 184 10^3/uL (150-450); RED BLOOD COUNT 4.54 10^6/uL (4.00-5.40); WHITE BLOOD COUNT 7.4 10^3/uL (4.0-10.0)
[2020-12-07 14:01] LABS: BLOOD UREA NITROGEN 14 MG/DL (7-18); CALCIUM LEVEL 9.5 MG/DL (8.8-10.2); CARBON DIOXIDE LEVEL 29 MEQ/L (21-32); CHLORIDE LEVEL 106 MEQ/L (98-107); CHOLESTEROL LEVEL 187 MG/DL (<200); CREATININE FOR GFR 0.72 MG/DL (0.55-1.30); GLOMERULAR FILTRATION RATE > 60.0 (>39); GLUCOSE, FASTING 91 MG/DL (70-100); HDL CHOLESTEROL 76 MG/DL (>40); LDL CHOLESTEROL 88 MG/DL (<100); NON-HDL-C 111 MG/DL; POTASSIUM SERUM 4.3 MEQ/L (3.5-5.1); SODIUM LEVEL 140 MEQ/L (136-145); TRIGLYCERIDES LEVEL 117 MG/DL (<150)
== END ==
LOC: M SFHCLERA 10:41
PROVIDERS: ATTEND Family Medicine
DX: E03.9 Hypothyroidism, unspecified (principal); R53.83 Other fatigue; E78.2 Mixed hyperlipidemia
CPT/HCPCS: 36415; 80048; 80061; 84443; 85025; G0463

== ENCOUNTER → 2021-04-10 | Outpatient (CLI) | payer MEDICARE, OTHER ==
--- NOTE | 2021-04-10 09:15 | REPMRS ---
Patient History The patient states she had a clinical breast exam in March 2021. Family history of prostate cancer at age 55 in brother, prostate cancer at age 55 in brother. Took estrogen for 10 years. Took progesterone for 10 years. Patient states no breast complaints today. Patient has signed MRS History Sheet. Digital Woman Screen Mammo: April 10, 2021 - Exam #: [id number] Bilateral CC and MLO view(s) were taken. Technologist: Farnaz Roberts, Technologist Prior study comparison: February 16, 2020, bilateral digital woman screen mammo performed at [facility]. February 04, 2019, bilateral digital woman screen mammo performed at [facility]. February 10, 2018, bilateral digital woman screen mammo performed at [facility]. FINDINGS: There are scattered fibroglandular densities. The Volpara volumetric breast density category is:B. There has been no change in the appearance of the mammogram from the prior studies. There is a mild amount of scattered fibroglandular density which is fairly symmetric. There is no interval development of dominant mass, architectural distortion, or grouped microcalcification suggestive of malignancy. 3-D tomosynthesis shows no additional findings. Assessment: BI-RADS/ACR category 1 mammogram. Negative Mammogram. Recommendation Routine screening mammogram of both breasts in 1 year (for women over age 40). This patient's [facility] Lifetime Breast Cancer Risk is estimated at 1.6 %. This mammogram was interpreted with the aid of an FDA-approved computer-aided dectection system. Electronically Signed By: Sam Mensah MD 04/10/21 0915
--- NOTE | 2021-04-10 09:27 | DEXAMM ---
INDICATION: AGE RELATED OSTEOPOROSIS WO CURRENT PATHOLOGICAL FX. COMPARISON: February 10, 2018. TECHNIQUE: Bone density was measured using dual-energy x-ray absorptionmetry (DEXA). FINDINGS: AP SPINE L1-L4 BMD 0.904 g/cm2 Young Adult T-Score -2.3 Age Matched Z-Score -0.5. LT FEMUR, TOTAL BMD 0.763 g/cm2 Young Adult T-Score -1.9 Age Matched Z-Score 0.1. LT NECK BMD 0.738 g/cm2 Young Adult T-Score -2.2 Age Matched Z-Score 0.0. RT FEMUR, TOTAL BMD 0.801 g/cm2 Young Adult T-Score -1.6 Age Matched Z-Score 0.4. RT NECK BMD 0.798 g/cm2 Young Adult T-Score -1.7 Age Matched Z-Score 0.4. IMPRESSION: There is low bone density of the spine. There is low bone density of the left hip. There is low bone density of the right hip. The density of the spine has increased 6.4% since the initial exam on July 21, 2000. The density of the spine decreased 4.7% since the most recent exam on February 10, 2018. The density of the left hip has increased 0.1% since the initial exam on July 21, 2000. The density of the left hip has decreased 2.1% since the most recent exam on February 10, 2018. The density of the right hip has increased 0.3% since the initial exam on July 21, 2000. The density of the right hip has decreased 1.5% since the most recent exam on February 10, 2018. FOLLOW-UP: Recommendation for the next bone density exam: 2-5 years. <Electronically signed by Sam Mensah > 04/10/21 0924
== END ==
LOC: M WHC 08:20
PROVIDERS: ATTEND Obstetrics & Gynecology
DX: Z12.31 Encounter for screening mammogram for malignant neoplasm of breast (principal); M81.0 Age-related osteoporosis without current pathological fracture

== ENCOUNTER → 2021-11-19 | Outpatient (REF) | payer MEDICARE, OTHER | LOC: M SFHCLERA 11:36 | PROVIDERS: ATTEND Family Medicine | DX: R30.0 Dysuria (principal); R35.0 Frequency of micturition; B96.1 Klebsiella pneumoniae [K. pneumoniae] as the cause of diseases classified elsewhere ==

== ENCOUNTER → 2021-11-30 | Outpatient (CLI) | payer MEDICARE, OTHER ==
[2021-11-30 12:40] LABS: BLOOD UREA NITROGEN 19 MG/DL (7-18); CALCIUM LEVEL 9.4 MG/DL (8.8-10.2); CARBON DIOXIDE LEVEL 31 MEQ/L (21-32); CHLORIDE LEVEL 107 MEQ/L (98-107); CHOLESTEROL LEVEL 189 MG/DL (<200); CHOLESTEROL RISK RATIO 2.589 (<5); CREATININE FOR GFR 0.74 MG/DL (0.55-1.30); GLOMERULAR FILTRATION RATE > 60.0 (>32); GLUCOSE, FASTING 84 MG/DL (70-100); HDL CHOLESTEROL 73 MG/DL (>40); LDL CHOLESTEROL 90 MG/DL (<100); NON-HDL-C 116 MG/DL; POTASSIUM SERUM 4.6 MEQ/L (3.5-5.1); SODIUM LEVEL 142 MEQ/L (136-145); TRIGLYCERIDES LEVEL 130 MG/DL (<150)
== END ==
LOC: M PLALAB 10:29
PROVIDERS: ATTEND Family Medicine
DX: E78.2 Mixed hyperlipidemia (principal); E03.9 Hypothyroidism, unspecified

== ENCOUNTER → 2021-12-10 | Outpatient (REF) | payer MEDICARE, OTHER | LOC: M SFHCLERA 11:37 | PROVIDERS: ATTEND Family Medicine | DX: R10.2 Pelvic and perineal pain (principal) ==

== ENCOUNTER → 2022-02-27 | Outpatient (REF) | payer MEDICARE, OTHER | LOC: M SFHCLERA 11:19 | PROVIDERS: ATTEND Family Medicine | DX: R30.0 Dysuria (principal) ==

== ENCOUNTER 2022-03-02 23:21 | Emergency (ER) | payer MEDICARE, OTHER ==
[~2022-03-02] VITALS: Ht 157.5 cm; Wt 50.0 kg
[2022-03-03 02:54] LABS: BASO # 0.1 10^3/uL (0.0-0.2); BASO % 0.7 % (0.0-1.0); EOS # 0.1 10^3/uL (0.0-0.5); EOS % 1.2 % (0.0-3.0); HEMATOCRIT 41.9 % (36.0-47.0); HEMOGLOBIN 13.5 g/dl (12.0-15.5); LYMPH # 2.2 10^3/uL (1.5-5.0); LYMPH % 24.2 % (24.0-44.0); MEAN CORPUSCULAR HEMOGLOBIN 29.9 pg (27.0-33.0); MEAN CORPUSCULAR HGB CONC 32.2 g/dl (32.0-36.5); MEAN CORPUSCULAR VOLUME 92.9 fl (80.0-96.0); MONO # 0.7 10^3/uL (0.0-0.8); MONO % 7.3 % (2.0-8.0); NEUTROPHILS # 6.1 10^3/uL (1.5-8.5); NEUTROPHILS % 66.2 % (36.0-66.0); PLATELET COUNT, AUTOMATED 178 10^3/uL (150-450); RED BLOOD COUNT 4.51 10^6/uL (4.00-5.40); WHITE BLOOD COUNT 9.2 10^3/uL (4.0-10.0)
[2022-03-03 03:14] LABS: INR 0.97; PROTHROMBIN TIME 13.3 SECONDS (12.7-14.5)
[2022-03-03 03:15] LABS: PARTIAL THROMBOPLASTIN TIME 26.8 SECONDS (25.9-37.0)
[2022-03-03 03:26] LABS: BLOOD UREA NITROGEN 16 MG/DL (7-18); CALCIUM LEVEL 9.7 MG/DL (8.8-10.2); CARBON DIOXIDE LEVEL 26 MEQ/L (21-32); CHLORIDE LEVEL 105 MEQ/L (98-107); CREATININE FOR GFR 0.66 MG/DL (0.55-1.30); GLOMERULAR FILTRATION RATE > 60.0 (>32); GLUCOSE, FASTING 111 MG/DL (70-100); MAGNESIUM LEVEL 2.3 MG/DL (1.8-2.4); POTASSIUM SERUM 4.6 MEQ/L (3.5-5.1); SODIUM LEVEL 137 MEQ/L (136-145)
[2022-03-03 03:31] LABS: CK-MB VALUE MASS 1.9 NG/ML (<3.6); MB/CK RELATIVE INDEX 2.47 (< OR =4)
[2022-03-03 04:40] LABS: CK-MB VALUE MASS 1.7 NG/ML (<3.6); MB/CK RELATIVE INDEX 2.5 (< OR =4)
[2022-03-03 05:40] VITALS: BP 121/60
== END 2022-03-03 05:46 | disposition home or self-care (01) ==
LOC: M ED 23:21
DX: I20.9 Angina pectoris, unspecified (principal); R20.2 Paresthesia of skin; I25.10 Atherosclerotic heart disease of native coronary artery without angina pectoris; I10 Essential (primary) hypertension; E03.9 Hypothyroidism, unspecified; Z79.899 Other long term (current) drug therapy; Z79.890 Hormone replacement therapy

== ENCOUNTER → 2022-04-10 | Outpatient (CLI) | payer MEDICARE, OTHER | LOC: M WHC 12:00 | PROVIDERS: ATTEND Nurse Practitioner Family | DX: Z12.31 Encounter for screening mammogram for malignant neoplasm of breast (principal) ==

== ENCOUNTER 2022-09-24 13:11 | Emergency (ER) | payer MEDICARE, OTHER ==
[~2022-09-24] VITALS: Ht 157.5 cm; Wt 51.9 kg
[2022-09-24] MEDS ORDERED: FIBE625T PO (13:37)
[2022-09-24] MEDS ORDERED: AMLO25TA PO (13:37)
[2022-09-24] MEDS ORDERED: POLY510P14 PO (13:37)
[2022-09-24] MEDS ORDERED: ASPIRIN 81MG CHEW TABLET PO ONE (13:45)
[2022-09-24] MEDS ORDERED: NITROGLYCERIN 0.4MG SUBL TABLET SL PRN (13:45)
[2022-09-24 14:34] LABS: BASO # 0.1 10^3/uL (0.0-0.2); EOS # 0.1 10^3/uL (0.0-0.5); EOS % 1.6 % (0.0-3.0); HEMATOCRIT 43.6 % (36.0-47.0); HEMOGLOBIN 14.1 g/dl (12.0-15.5); LYMPH # 2.3 10^3/uL (1.5-5.0); LYMPH % 27.9 % (24.0-44.0); MEAN CORPUSCULAR HEMOGLOBIN 30.5 pg (27.0-33.0); MEAN CORPUSCULAR HGB CONC 32.3 g/dl (32.0-36.5); MEAN CORPUSCULAR VOLUME 94.4 fl (80.0-96.0); MONO # 0.8 10^3/uL (0.0-0.8); MONO % 10.1 % (2.0-8.0); NEUTROPHILS # 4.8 10^3/uL (1.5-8.5); NEUTROPHILS % 59.2 % (36.0-66.0); PLATELET COUNT, AUTOMATED 195 10^3/uL (150-450); RED BLOOD COUNT 4.62 10^6/uL (4.00-5.40); WHITE BLOOD COUNT 8.2 10^3/uL (4.0-10.0)
[2022-09-24 14:44] LABS: INR 0.97; PROTHROMBIN TIME 13.1 SECONDS (12.5-14.5)
[2022-09-24 14:45] LABS: PARTIAL THROMBOPLASTIN TIME 26.9 SECONDS (24.8-34.2)
[2022-09-24 14:59] LABS: ALBUMIN 3.9 G/DL (3.2-5.2); ALKALINE PHOSPHATASE 78 U/L (46-116); ALT/SGPT 20 U/L (7.0-40); AST/SGOT 26 U/L (<34); BILIRUBIN,DIRECT 0.2 MG/DL (<0.4); BILIRUBIN,TOTAL 0.6 MG/DL (0.3-1.2); BLOOD UREA NITROGEN 13 MG/DL (9-23); CALCIUM LEVEL 9.4 MG/DL (8.3-10.6); CARBON DIOXIDE LEVEL 29 MMOL/L (20-31); CHLORIDE LEVEL 106 MMOL/L (98-107); CK-MB VALUE MASS < 1.0 NG/ML (<3.6); CREATININE FOR GFR 0.63 MG/DL (0.55-1.30); GLOMERULAR FILTRATION RATE > 60.0 (>32); GLUCOSE, FASTING 95 MG/DL (74-106); POTASSIUM SERUM 4.3 MMOL/L (3.5-5.1); SODIUM LEVEL 141 MMOL/L (136-145); TOTAL PROTEIN 6.9 G/DL (5.7-8.2)
[2022-09-24 15:03] LABS: FREE T4 1.23 NG/DL (0.89-1.76)
[2022-09-24 15:04] LABS: CPK CREATINE PHOSPHOKINASE 59 U/L (34-145); MB/CK RELATIVE INDEX 1.69 (< OR =4); THYROID STIMULATING HORMONE 2.201 uIU/ML (0.55-4.78)
[2022-09-24 15:06] LABS: RSV AMPLIFICATION NEGATIVE (NEGATIVE)
[2022-09-24 15:11] LABS: D-DIMER QUANT < 270.0 ng/ml (<500)
[2022-09-24 15:37] LABS: CK-MB VALUE MASS < 1.0 NG/ML (<3.6)
[2022-09-24 15:38] LABS: CPK CREATINE PHOSPHOKINASE 48 U/L (34-145); MB/CK RELATIVE INDEX 2.08 (< OR =4)
[2022-09-24 16:00] VITALS: BP 127/60
== END 2022-09-24 16:21 | disposition home or self-care (01) ==
LOC: M ED 13:11
DX: R07.9 Chest pain, unspecified (principal); M81.0 Age-related osteoporosis without current pathological fracture; E03.9 Hypothyroidism, unspecified; I49.3 Ventricular premature depolarization; E78.5 Hyperlipidemia, unspecified; Z79.899 Other long term (current) drug therapy; Z79.82 Long term (current) use of aspirin

== ENCOUNTER → 2023-04-10 | Outpatient (REF) | payer MEDICARE, OTHER ==
[~2023-04-10] MED LIST changes: +POLY510P14 PO
[2023-04-10 12:32] LABS: APPEARANCE, URINE HAZY (CLEAR); BACTERIA, URINE AUTO 1+ (NEGATIVE); BILIRUBIN, URINE AUTO NEGATIVE (NEGATIVE); BLOOD, URINE BLOOD 1+ (NEGATIVE); COLOR, URINE YELLOW (YELLOW); GLUCOSE, URINE (UA) AUTO NEGATIVE (NEGATIVE); KETONE, URINE AUTO NEGATIVE (NEGATIVE); LEUKOCYTE ESTERASE, URINE AUTO 3+ (NEGATIVE); NITRITE, URINE AUTO NEGATIVE (NEGATIVE); PROTEIN, URINE AUTO NEGATIVE (NEGATIVE); RBC, URINE AUTO 0 /HPF (0-3); SPECIFIC GRAVITY URINE AUTO 1.004 (1.002-1.035); SQUAMOUS EPITHELIAL CELL UR AU 1 /HPF (0-6); UROBILINOGEN, URINE AUTO 0.2 mg/dL (0.0-2.0); WBC, URINE AUTO 89 /HPF (0-3)
== END ==
LOC: M SFHCLERA 11:24
PROVIDERS: ATTEND Physician Assistant
DX: R30.0 Dysuria (principal)

== ENCOUNTER → 2023-04-18 | Outpatient (CLI) | payer MEDICARE, OTHER | LOC: M WHC 09:00 | PROVIDERS: ATTEND Nurse Practitioner Family | DX: Z12.31 Encounter for screening mammogram for malignant neoplasm of breast (principal); Z13.820 Encounter for screening for osteoporosis; M85.88 Other specified disorders of bone density and structure, other site; M85.851 Other specified disorders of bone density and structure, right thigh; M85.852 Other specified disorders of bone density and structure, left thigh ==

== ENCOUNTER → 2023-10-08 | Outpatient (CLI) | payer MEDICARE, OTHER ==
[2023-10-08 13:43] LABS: ALBUMIN 3.8 G/DL (3.2-5.2); ALKALINE PHOSPHATASE 81 U/L (46-116); ALT/SGPT 23 U/L (7.0-40); AST/SGOT 29 U/L (<34); BILIRUBIN,TOTAL 0.7 MG/DL (0.3-1.2); BLOOD UREA NITROGEN 16 MG/DL (9-23); CALCIUM LEVEL 9.6 MG/DL (8.3-10.6); CARBON DIOXIDE LEVEL 30 MMOL/L (20-31); CHLORIDE LEVEL 102 MMOL/L (98-107); CHOLESTEROL LEVEL 194 MG/DL (<200); CHOLESTEROL RISK RATIO 2.61 (<5); CREATININE FOR GFR 0.69 MG/DL (0.55-1.30); GLOMERULAR FILTRATION RATE > 60.0 (>32); GLUCOSE, FASTING 94 MG/DL (74-106); HDL CHOLESTEROL 74.1 MG/DL (>40); LDL CHOLESTEROL 95.7 MG/DL (<100); NON-HDL-C 119.9 MG/DL; POTASSIUM SERUM 4.6 MMOL/L (3.5-5.1); SODIUM LEVEL 136 MMOL/L (136-145); TOTAL PROTEIN 6.8 G/DL (5.7-8.2); TRIGLYCERIDES LEVEL 121 MG/DL (<150)
[2023-10-08 13:45] LABS: THYROID STIMULATING HORMONE 3.461 uIU/ML (0.55-4.78)
== END ==
LOC: M PLALAB 07:20
PROVIDERS: ATTEND Family Medicine
DX: E78.2 Mixed hyperlipidemia (principal); I10 Essential (primary) hypertension; E03.9 Hypothyroidism, unspecified

== ENCOUNTER 2023-11-03 08:58 | Emergency (ER) | payer MEDICARE, OTHER ==
[~2023-11-03] VITALS: Ht 160 cm; Wt 51.6 kg
[2023-11-03 09:45] LABS: BASO # 0.1 10^3/uL (0.0-0.2); EOS # 0.2 10^3/uL (0.0-0.5); EOS % 2.1 % (0.0-3.0); HEMATOCRIT 41.8 % (36.0-47.0); HEMOGLOBIN 13.8 g/dl (12.0-15.5); LYMPH # 1.9 10^3/uL (1.5-5.0); LYMPH % 26.8 % (24.0-44.0); MEAN CORPUSCULAR HEMOGLOBIN 30.9 pg (27.0-33.0); MEAN CORPUSCULAR VOLUME 93.7 fl (80.0-96.0); MONO # 0.9 10^3/uL (0.0-0.8); NEUTROPHILS # 4.1 10^3/uL (1.5-8.5); NEUTROPHILS % 56.7 % (36.0-66.0); PLATELET COUNT, AUTOMATED 184 10^3/uL (150-450); RED BLOOD COUNT 4.46 10^6/uL (4.00-5.40); WHITE BLOOD COUNT 7.2 10^3/uL (4.0-10.0)
[2023-11-03 09:59] LABS: INR 0.98; PARTIAL THROMBOPLASTIN TIME 25.9 SECONDS (24.8-34.2); PROTHROMBIN TIME 12.8 SECONDS (12.5-14.5)
[2023-11-03 10:09] LABS: CK-MB VALUE MASS 1.2 NG/ML (<3.6)
[2023-11-03 10:10] LABS: LIPASE 57 U/L (12-53)
[2023-11-03 10:12] LABS: ALBUMIN 4.1 G/DL (3.2-5.2); ALKALINE PHOSPHATASE 73 U/L (46-116); ALT/SGPT 20 U/L (7.0-40); AST/SGOT 27 U/L (<34); BILIRUBIN,DIRECT 0.1 MG/DL (<0.4); BILIRUBIN,TOTAL 0.6 MG/DL (0.3-1.2); BLOOD UREA NITROGEN 14 MG/DL (9-23); CALCIUM LEVEL 9.1 MG/DL (8.3-10.6); CARBON DIOXIDE LEVEL 28 MMOL/L (20-31); CHLORIDE LEVEL 103 MMOL/L (98-107); CREATININE FOR GFR 0.71 MG/DL (0.55-1.30); GLOMERULAR FILTRATION RATE > 60.0 (>32); GLUCOSE, FASTING 92 MG/DL (74-106); POTASSIUM SERUM 4.8 MMOL/L (3.5-5.1); SODIUM LEVEL 138 MMOL/L (136-145); TOTAL PROTEIN 7.1 G/DL (5.7-8.2)
[2023-11-03] MEDS ORDERED: ISOVUE-370 76% 100ML VIAL As Ordered ONE (10:12)
[2023-11-03 10:13] LABS: THYROID STIMULATING HORMONE 4.357 uIU/ML (0.55-4.78)
[2023-11-03 10:14] LABS: FREE T4 1.44 NG/DL (0.89-1.76)
[2023-11-03 10:18] LABS: CPK CREATINE PHOSPHOKINASE 65 U/L (34-145); MB/CK RELATIVE INDEX 1.84 (< OR =4)
[2023-11-03] MEDS: ASPIRIN 81MG CHEW TABLET PO ONE (10:18)
[2023-11-03 10:59] LABS: CK-MB VALUE MASS < 1.0 NG/ML (<3.6)
[2023-11-03 11:01] LABS: CPK CREATINE PHOSPHOKINASE 52 U/L (34-145); MB/CK RELATIVE INDEX 1.92 (< OR =4)
[2023-11-03 12:00] VITALS: BP 124/62; TEMP 97.7; O2SAT 97
[2023-11-03] MEDS ORDERED: HOME MED LIST COMPLETE! XX SCH (12:00)
[2023-11-03] MEDS ORDERED: CENT1TAB9 PO (12:00)
[2023-11-03] MEDS ORDERED: AMLO1TAB24 PO (12:00)
[2023-11-03] MEDS ORDERED: METO1TAB32 PO (12:00)
[2023-11-03] MEDS ORDERED: VITA200032 PO (12:00)
[2023-11-03] MEDS ORDERED: ASPI81TAEC PO (12:00)
[2023-11-03] MEDS ORDERED: CALC500T68 PO (12:00)
[2023-11-03] MEDS ORDERED: META28.32 PO (12:00)
== END 2023-11-03 12:25 | disposition home or self-care (01) ==
LOC: M ED 08:58
DX: R07.9 Chest pain, unspecified (principal); I49.3 Ventricular premature depolarization; I10 Essential (primary) hypertension; E78.5 Hyperlipidemia, unspecified; Z79.1 Long term (current) use of non-steroidal anti-inflammatories (NSAID); Z79.810 Long term (current) use of selective estrogen receptor modulators (SERMs); Z79.899 Other long term (current) drug therapy
CPT/HCPCS: 36415; 71045; 71275; 80047; 80048; 80076; 82550; 82553; 83690; 83880; 84439; 84443; 84484; 85025; 85610; 85730; 93005; 93041; 94760; 99285; Q9967

== ENCOUNTER 2023-11-30 17:32 | Emergency (ER) | payer MEDICARE, OTHER ==
[~2023-11-30] VITALS: Ht 154.9 cm; Wt 51.5 kg
[~2023-11-30 17:32] MED LIST changes: +AMLO1TAB24 PO; +ASPI81TAEC PO; +CALC500T68 PO; +CENT1TAB9 PO; +META28.32 PO; +METO1TAB32 PO; +VITA200032 PO
[2023-11-30 18:13] LABS: BASO # 0.1 10^3/uL (0.0-0.2); EOS # 0.3 10^3/uL (0.0-0.5); HEMATOCRIT 41.4 % (36.0-47.0); HEMOGLOBIN 13.5 g/dl (12.0-15.5); LYMPH # 3.1 10^3/uL (1.5-5.0); LYMPH % 37.1 % (24.0-44.0); MEAN CORPUSCULAR HEMOGLOBIN 30.3 pg (27.0-33.0); MEAN CORPUSCULAR HGB CONC 32.6 g/dl (32.0-36.5); MEAN CORPUSCULAR VOLUME 92.8 fl (80.0-96.0); MONO % 11.7 % (2.0-8.0); PLATELET COUNT, AUTOMATED 184 10^3/uL (150-450); RED BLOOD COUNT 4.46 10^6/uL (4.00-5.40); WHITE BLOOD COUNT 8.4 10^3/uL (4.0-10.0)
[2023-11-30] MEDS: ASPIRIN 325 MG TAB PO ONE (18:20)
[2023-11-30 18:34] LABS: BLOOD UREA NITROGEN 15 MG/DL (9-23); CALCIUM LEVEL 9.2 MG/DL (8.3-10.6); CARBON DIOXIDE LEVEL 27 MMOL/L (20-31); CHLORIDE LEVEL 104 MMOL/L (98-107); CK-MB VALUE MASS 1.2 NG/ML (<3.6); CREATININE FOR GFR 0.75 MG/DL (0.55-1.30); GLOMERULAR FILTRATION RATE > 60.0 (>32); GLUCOSE, FASTING 88 MG/DL (74-106); POTASSIUM SERUM 4.5 MMOL/L (3.5-5.1); SODIUM LEVEL 137 MMOL/L (136-145)
[2023-11-30 18:36] LABS: CPK CREATINE PHOSPHOKINASE 76 U/L (34-145); MB/CK RELATIVE INDEX 1.57 (< OR =4)
[2023-11-30 19:29] LABS: CK-MB VALUE MASS 1.5 NG/ML (<3.6)
[2023-11-30 19:30] LABS: MB/CK RELATIVE INDEX 2.2 (< OR =4)
[2023-11-30 19:45] VITALS: BP 135/61
[2023-11-30 19:47] VITALS: TEMP 97.6; O2SAT 98
== END 2023-11-30 20:00 | disposition home or self-care (01) ==
LOC: M ED 17:32
DX: R07.89 Other chest pain (principal); I25.2 Old myocardial infarction; I10 Essential (primary) hypertension; Z79.1 Long term (current) use of non-steroidal anti-inflammatories (NSAID); Z79.810 Long term (current) use of selective estrogen receptor modulators (SERMs); Z79.899 Other long term (current) drug therapy

== ENCOUNTER → 2023-12-30 | Outpatient (REF) | payer MEDICARE, OTHER ==
[2023-12-30 18:01] LABS: APPEARANCE, URINE CLEAR (CLEAR); BACTERIA, URINE AUTO 1+ (NEGATIVE); BILIRUBIN, URINE AUTO NEGATIVE (NEGATIVE); BLOOD, URINE BLOOD 1+ (NEGATIVE); COLOR, URINE STRAW (YELLOW); GLUCOSE, URINE (UA) AUTO NEGATIVE (NEGATIVE); KETONE, URINE AUTO NEGATIVE (NEGATIVE); LEUKOCYTE ESTERASE, URINE AUTO TRACE (NEGATIVE); NITRITE, URINE AUTO NEGATIVE (NEGATIVE); PROTEIN, URINE AUTO NEGATIVE (NEGATIVE); RBC, URINE AUTO 0 /HPF (0-3); SPECIFIC GRAVITY URINE AUTO 1.003 (1.002-1.035); SQUAMOUS EPITHELIAL CELL UR AU 1 /HPF (0-6); UROBILINOGEN, URINE AUTO 0.2 mg/dL (0.0-2.0); WBC, URINE AUTO 2 /HPF (0-3)
== END ==
LOC: M SFHCLERA 13:05
PROVIDERS: ATTEND Family Medicine
DX: R30.0 Dysuria (principal)

== ENCOUNTER 2024-01-01 21:15 | Emergency (ER) | payer MEDICARE, OTHER ==
[~2024-01-01] VITALS: Ht 157.5 cm; Wt 51.9 kg
[2024-01-01 21:16] VITALS: BP 160/68; TEMP 98.2; O2SAT 97
[2024-01-01] MEDS ORDERED: diphenhydrAMINE 50MG CAP PO ONE (22:30)
== END 2024-01-01 22:57 | disposition left against medical advice (07) ==
LOC: M ED 21:15
DX: Z53.21 Procedure and treatment not carried out due to patient leaving prior to being seen by health care provider (principal)

== ENCOUNTER 2024-03-15 12:26 | Emergency (ER) | payer MEDICARE, OTHER ==
[~2024-03-15] VITALS: Ht 157.5 cm; Wt 50.1 kg
[2024-03-15 13:26] LABS: BASO # 0.1 10^3/uL (0.0-0.2); BASO % 0.9 % (0.0-1.0); EOS # 0.2 10^3/uL (0.0-0.5); EOS % 2.7 % (0.0-3.0); LYMPH # 2.2 10^3/uL (1.5-5.0); LYMPH % 28.2 % (24.0-44.0); MEAN CORPUSCULAR HEMOGLOBIN 31.4 pg (27.0-33.0); MEAN CORPUSCULAR HGB CONC 33.3 g/dl (32.0-36.5); MEAN CORPUSCULAR VOLUME 94.2 fl (80.0-96.0); MONO # 0.9 10^3/uL (0.0-0.8); NEUTROPHILS # 4.5 10^3/uL (1.5-8.5); NEUTROPHILS % 56.9 % (36.0-66.0); PLATELET COUNT, AUTOMATED 190 10^3/uL (150-450); RED BLOOD COUNT 4.46 10^6/uL (4.00-5.40); WHITE BLOOD COUNT 7.9 10^3/uL (4.0-10.0)
[2024-03-15 13:47] LABS: CK-MB VALUE MASS < 1.0 NG/ML (<3.6)
[2024-03-15 13:48] LABS: BLOOD UREA NITROGEN 14 MG/DL (9-23); CARBON DIOXIDE LEVEL 28 MMOL/L (20-31); CHLORIDE LEVEL 104 MMOL/L (98-107); CREATININE FOR GFR 0.71 MG/DL (0.55-1.30); GLOMERULAR FILTRATION RATE > 60.0 (>32); GLUCOSE, FASTING 99 MG/DL (74-106); POTASSIUM SERUM 4.8 MMOL/L (3.5-5.1); SODIUM LEVEL 137 MMOL/L (136-145)
[2024-03-15 13:54] LABS: CPK CREATINE PHOSPHOKINASE 49 U/L (34-145); MB/CK RELATIVE INDEX 2.04 (< OR =4)
[2024-03-15 15:03] LABS: CK-MB VALUE MASS < 1.0 NG/ML (<3.6)
[2024-03-15 15:04] LABS: CPK CREATINE PHOSPHOKINASE 43 U/L (34-145); MB/CK RELATIVE INDEX 2.32 (< OR =4)
[2024-03-15 17:07] VITALS: BP 150/69; TEMP 97.7; O2SAT 98
== END 2024-03-15 17:16 | disposition home or self-care (01) ==
LOC: M ED 12:26
DX: R07.89 Other chest pain (principal); R00.1 Bradycardia, unspecified; E78.5 Hyperlipidemia, unspecified; F41.9 Anxiety disorder, unspecified; Z79.1 Long term (current) use of non-steroidal anti-inflammatories (NSAID); Z79.899 Other long term (current) drug therapy

== ENCOUNTER → 2024-04-08 | Outpatient (CLI) | payer MEDICARE, OTHER ==
[2024-04-08 12:04] LABS: BASO # 0.1 10^3/uL (0.0-0.2); BASO % 0.9 % (0.0-1.0); EOS # 0.3 10^3/uL (0.0-0.5); EOS % 3.5 % (0.0-3.0); HEMOGLOBIN 14.3 g/dl (12.0-15.5); LYMPH # 3.4 10^3/uL (1.5-5.0); LYMPH % 41.8 % (24.0-44.0); MEAN CORPUSCULAR HEMOGLOBIN 30.3 pg (27.0-33.0); MEAN CORPUSCULAR HGB CONC 31.8 g/dl (32.0-36.5); MEAN CORPUSCULAR VOLUME 95.3 fl (80.0-96.0); MONO # 0.9 10^3/uL (0.0-0.8); MONO % 10.7 % (2.0-8.0); NEUTROPHILS # 3.4 10^3/uL (1.5-8.5); NEUTROPHILS % 42.9 % (36.0-66.0); PLATELET COUNT, AUTOMATED 208 10^3/uL (150-450); RED BLOOD COUNT 4.72 10^6/uL (4.00-5.40)
[2024-04-08 12:08] LABS: ALBUMIN 3.8 G/DL (3.2-5.2); ALKALINE PHOSPHATASE 76 U/L (46-116); ALT/SGPT 15 U/L (7.0-40); AST/SGOT 16 U/L (<34); BILIRUBIN,TOTAL 0.7 MG/DL (0.3-1.2); BLOOD UREA NITROGEN 11 MG/DL (9-23); CALCIUM LEVEL 9.8 MG/DL (8.3-10.6); CARBON DIOXIDE LEVEL 28 MMOL/L (20-31); CHLORIDE LEVEL 103 MMOL/L (98-107); CREATININE FOR GFR 0.72 MG/DL (0.55-1.30); GLOMERULAR FILTRATION RATE > 60.0 (>32); GLUCOSE, FASTING 91 MG/DL (74-106); POTASSIUM SERUM 4.3 MMOL/L (3.5-5.1); SODIUM LEVEL 135 MMOL/L (136-145); THYROID STIMULATING HORMONE 2.169 uIU/ML (0.55-4.78); VITAMIN B12 LEVEL 526 PG/ML (211-911)
== END ==
LOC: M PLALAB 08:05
PROVIDERS: ATTEND Family Medicine
DX: R41.3 Other amnesia (principal); E03.9 Hypothyroidism, unspecified

== ENCOUNTER → 2024-04-20 | Outpatient (CLI) | payer MEDICARE, OTHER | LOC: M WHC 14:48 | PROVIDERS: ATTEND Nurse Practitioner Family | DX: Z12.31 Encounter for screening mammogram for malignant neoplasm of breast (principal); R92.323 Mammographic fibroglandular density, bilateral breasts ==

== ENCOUNTER 2024-04-28 16:44 | Emergency (ER) | payer MEDICARE, OTHER ==
[~2024-04-28] VITALS: Ht 157.5 cm; Wt 49.7 kg
[2024-04-28 16:45] VITALS: BP 194/74; TEMP 97; O2SAT 98
== END 2024-04-28 20:20 | disposition left against medical advice (07) ==
LOC: M ED 16:44
DX: Z53.21 Procedure and treatment not carried out due to patient leaving prior to being seen by health care provider (principal)

== ENCOUNTER → 2024-04-28 | Outpatient (REF) | payer MEDICARE, OTHER | LOC: M SFHCWAGY 13:02 | PROVIDERS: ATTEND Nurse Practitioner Family | DX: R39.15 Urgency of urination (principal) ==

== ENCOUNTER 2024-09-02 10:53 | Emergency (ER) | payer MEDICARE, OTHER ==
[~2024-09-02] VITALS: Ht 157.5 cm; Wt 48.8 kg
[2024-09-02 14:48] LABS: BASO # 0.1 10^3/uL (0.0-0.2); BASO % 0.9 % (0.0-1.0); EOS # 0.2 10^3/uL (0.0-0.5); EOS % 1.9 % (0.0-3.0); HEMATOCRIT 41.7 % (36.0-47.0); HEMOGLOBIN 13.6 g/dl (12.0-15.5); LYMPH # 2.4 10^3/uL (1.5-5.0); LYMPH % 27.9 % (24.0-44.0); MEAN CORPUSCULAR HEMOGLOBIN 30.4 pg (27.0-33.0); MEAN CORPUSCULAR HGB CONC 32.6 g/dl (32.0-36.5); MEAN CORPUSCULAR VOLUME 93.1 fl (80.0-96.0); MONO # 0.7 10^3/uL (0.0-0.8); MONO % 8.6 % (2.0-8.0); NEUTROPHILS # 5.2 10^3/uL (1.5-8.5); NEUTROPHILS % 60.5 % (36.0-66.0); PLATELET COUNT, AUTOMATED 183 10^3/uL (150-450); RED BLOOD COUNT 4.48 10^6/uL (4.00-5.40); WHITE BLOOD COUNT 8.6 10^3/uL (4.0-10.0)
[2024-09-02 14:53] LABS: ERYTHROCYTE SEDIMENTATION RATE 12 mm/hr (0-30)
[2024-09-02 15:17] LABS: BLOOD UREA NITROGEN 15 MG/DL (9-23); CALCIUM LEVEL 9.5 MG/DL (8.3-10.6); CARBON DIOXIDE LEVEL 27 MMOL/L (20-31); CHLORIDE LEVEL 105 MMOL/L (98-107); GLOMERULAR FILTRATION RATE > 60.0 (>32); GLUCOSE, FASTING 96 MG/DL (74-106); MAGNESIUM LEVEL 2.2 MG/DL (1.8-2.4); POTASSIUM SERUM 4.7 MMOL/L (3.5-5.1); SODIUM LEVEL 140 MMOL/L (136-145)
[2024-09-02 15:40] VITALS: BP 105/51; TEMP 97.3; O2SAT 97
== END 2024-09-02 15:44 | disposition home or self-care (01) ==
LOC: M ED 10:53
DX: S00.83XA Contusion of other part of head, initial encounter (principal); Y92.019 Unspecified place in single-family (private) house as the place of occurrence of the external cause; Y93.9 Activity, unspecified; Y99.9 Unspecified external cause status; W22.8XXA Striking against or struck by other objects, initial encounter; I25.119 Atherosclerotic heart disease of native coronary artery with unspecified angina pectoris; I10 Essential (primary) hypertension; E03.9 Hypothyroidism, unspecified; Z79.1 Long term (current) use of non-steroidal anti-inflammatories (NSAID); Z79.810 Long term (current) use of selective estrogen receptor modulators (SERMs); Z79.899 Other long term (current) drug therapy

== ENCOUNTER → 2025-04-18 | Outpatient (CLI) | payer MEDICARE, OTHER ==
[2025-04-18 13:55] LABS: BASO # 0.1 10^3/uL (0.0-0.2); BASO % 1.1 % (0.0-1.0); EOS # 0.3 10^3/uL (0.0-0.5); EOS % 4.4 % (0.0-3.0); LYMPH # 3.2 10^3/uL (1.5-5.0); LYMPH % 43.1 % (24.0-44.0); MONO # 0.8 10^3/uL (0.0-0.8); MONO % 10.8 % (2.0-8.0); NEUTROPHILS # 3.0 10^3/uL (1.5-8.5); NEUTROPHILS % 40.3 % (36.0-66.0); PLATELET COUNT, AUTOMATED 179 10^3/uL (150-450)
[2025-04-18 14:06] LABS: C REACTIVE PROTEIN QUANTITATIV < 0.50 MG/DL (<1.0)
[2025-04-18 14:08] LABS: ALT/SGPT 16 U/L (7.0-40); AST/SGOT 25 U/L (<34); CALCIUM LEVEL 9.3 MG/DL (8.3-10.6); CARBON DIOXIDE LEVEL 28 MMOL/L (20-31); CHLORIDE LEVEL 100 MMOL/L (98-107); CREATININE FOR GFR 0.68 MG/DL (0.55-1.30); FREE T4 1.45 NG/DL (0.89-1.76); GLOMERULAR FILTRATION RATE 85.8 (>32); MAGNESIUM LEVEL 2.1 MG/DL (1.8-2.4); POTASSIUM SERUM 4.6 MMOL/L (3.5-5.1); PTH INTACT 39.5 PG/ML (18.5-88.0); SODIUM LEVEL 138 MMOL/L (136-145); THYROID PEROXIDASE ANTIBODY < 28.0 U/ML (<60.0); TOTAL 25(OH) VITAMIN D 50.7 NG/ML (20.0-100.0)
== END ==
LOC: M PLALAB 07:31
PROVIDERS: ATTEND Family Medicine
DX: M81.0 Age-related osteoporosis without current pathological fracture (principal); I10 Essential (primary) hypertension; E03.9 Hypothyroidism, unspecified; D50.9 Iron deficiency anemia, unspecified; E78.2 Mixed hyperlipidemia

== ENCOUNTER → 2025-04-25 | Outpatient (CLI) | payer MEDICARE, OTHER | LOC: M WHC 13:27 | PROVIDERS: ATTEND Family Medicine | DX: Z12.31 Encounter for screening mammogram for malignant neoplasm of breast (principal); R92.323 Mammographic fibroglandular density, bilateral breasts ==